=== PATIENT | male | born 1970 | race Caucasian/White ===

== ENCOUNTER 2017-08-03 00:22 | Inpatient (IN) | payer OTHER ==
[~2017-08-03] VITALS: Ht 175.3 cm; Wt 73.9 kg
[~2017-08-03 00:22] MED LIST: FLUO20CA36 PO; VEDO1INJ IV
[2017-08-03] MEDS ORDERED: HYDROmorphone INJ 1 MG/ML SYR IV STA (00:45)
[2017-08-03] MEDS ORDERED: SODIUM CHLORIDE 0.9% 1000ML 1,000 ML IV STA ×2 (00:45)
[2017-08-03] MEDS ORDERED: ONDANSETRON INJ 2 MG/ML 2 ML VIAL IV STA ×2 (00:45→01:43)
[2017-08-03 00:53] LABS: BASO % 0.1 %; BASO ABS # 0.01 K/uL (0-0.2); EOS % 1.6 %; EOS ABS # 0.16 K/uL (0-0.5); HEMATOCRIT 43.8 % (42-52); HEMOGLOBIN 14.8 g/dL (14.0-18.0); IG# 0.03 K/uL (0.00-0.02); LYMPH % 12.5 %; LYMPH ABS # 1.25 K/uL (1.2-3.4); MEAN CELL VOLUME 90.3 fL (80-100); MEAN CORPUSCULAR HEMOGLOBIN 30.5 pg (25-34); MEAN CORPUSCULAR HGB CONC 33.8 g/dl (32-36); MEAN PLATELET VOLUME 9.2 fL (7.4-10.4); MONO % 5.2 %; MONO ABS # 0.52 K/uL (0.11-0.59); NEUT % 80.3 %; NEUT ABS # 8.03 K/uL (1.4-6.5); PLATELET COUNT 294 K/uL (130-400); RED CELL DISTRIBUTION WIDTH CV 13.5 % (11.5-14.5); RED CELL DISTRIBUTION WIDTH SD 44.4 fL (36.4-46.3)
--- NOTE | 2017-08-03 00:57 | EMERGENCY ROOM VISIT NOTE ---
History Report prepared by Tim: James Mason Under the Supervision of: Dr. Maddy Bates D.O. First contact with patient: 00:33 Chief Complaint: ABDOMINAL PAIN Stated Complaint: PAIN RT SIDE OF STOMACH,NAUSEA,CROHNS HISTORY History of Present Illness The patient is a 47 year old male who presents to the Emergency Room with complaints of constant, sharp, abdominal pain beginning earlier today. The patient states this morning his entire abdomen was painful. He reports it subsided this evening, and his pain was focused on the right side of his abdomen. The patient notes he has a history of Crohn's disease, and his flares are typically on the left side, not the right. He states he vomited as well, and this is typical for his flares. The patient reports he had a history of a colon resection three years ago, and he has not had a flare since. He notes he has been experiencing fevers and chills, and lightheadedness throughout the day. 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 He denies blood in his stool, being around sick people, back pain, trouble urinating, a sorethroat, and a cough. Source of History: patient Onset: eaer today Position: abdomen Quality: sharp Timing: constant Associated Symptoms: + fevers, + chills, + vomiting, No sorethroat, No cough , No back pain Note: Associated symptoms: lightheadedness Denies: blood in his stool, trouble urinating Review of Systems See HPI for pertinent positives & negatives. A total of 10 systems reviewed and were otherwise negative. Past Medical & Surgical Medical Problems: (1) Crohns disease (2) GI bleed (3) SBO (small bowel obstruction) Family History Diabetes mellitus Hypertension Social History Smoking Status: Former Smoker Marital Status: Housing Status: lives with family Occupation Status: employed Current/Historical Medications No Active Prescriptions or Reported Meds Allergies Coded Allergies: Morphine (Verified Adverse Reaction, Intermediate, N/V, 08/03/17) Physical Exam Vital Signs Date Time Temp Pulse Resp B/P (MAP) Pulse Ox O2 Delivery O2 Flow Rate FiO2 08/03/17 05:47 111/70 08/03/17 05:41 85 13 96 08/03/17 05:31 92/60 08/03/17 05:11 84 14 96 08/03/17 05:01 115/59 08/03/17 04:41 81 94 08/03/17 04:35 80 08/03/17 04:31 102/70 08/03/17 04:11 86 14 08/03/17 04:06 86 13 08/03/17 04:01 103/69 08/03/17 03:36 89 13 92 08/03/17 03:31 109/69 08/03/17 03:06 95 15 99 08/03/17 03:01 129/73 08/03/17 02:36 91 15 99 08/03/17 02:31 111/73 97 Room Air 08/03/17 02:17 84 13 08/03/17 02:01 118/74 08/03/17 01:47 89 14 98 08/03/17 01:31 118/87 08/03/17 01:17 75 20 100 08/03/17 01:12 76 17 99 Nasal Cannula 2.0 08/03/17 01:04 Nasal Cannula 2.0 08/03/17 01:02 78 81 Room Air 08/03/17 01:01 125/76 08/03/17 00:57 73 16 100 08/03/17 00:52 74 29 99 Room Air 08/03/17 00:46 75 08/03/17 00:45 124/91 08/03/17 00:25 36.5 72 20 128/84 100 Room Air Physical Exam General: Very uncomfortable appearing. HEENT: Head - normocephalic and atraumatic Pupils are equal, round, and reactive to light. Extraocular eye muscles are intact, and sclera are anicteric. Nose - moist nasal mucosa without discharge. Mouth - moist buccal mucosa. Oropharynx is nonerythematous and there is no tonsillar exudate or edema noted. Neck: Supple; no JVD, nuchal rigidity, cervical lymphadenopathy. Heart: Regular rate and rhythm. There is a normal S1 and S2 with no murmurs, clicks, or gallops appreciated. Lungs: Clear to auscultation bilaterally with no wheezes, rales, or rhonchi. Abdomen: Soft, tender to palpation in both lower right and left quadrants, nondistended, with good bowel sounds. There are no palpable pulsatile masses or hepatosplenomegaly. There is no guarding, rigidity, or rebound noted. Extremities: No evidence of cyanosis, clubbing, or edema. There are easily palpable peripheral pulses. Skin: warm and dry with good turgor and no rashes. Medical Decision & Procedures ER Provider Diagnostic Interpretation: Radiology results as stated below per my review and the radiologist's interpretation: CT ABDOMEN & PELVIS With Contrast: Comparison: CT and pelvis 02/06/15. Oral contrast only reaches the proximal jejunum, limiting evaluation of remainder of bowel. Postsurgical changes at ileocecal junction, which appears patent. Multiple dilated loops of small bowel. Short segment of mural thickening and luminal narrowing of small bowel approximately 18cm from ileocecal junction and there is dilation and fecalization of small bowl proximal to this point (image 63, series 2). This likely represents Crohn's-related inflammation or stricture with resulting at lease partial obstruction. More distal small bowel is not collapsed, suggesting against complete obstruction. Consider follow-up examination to evaluate for contrast progression as clinically warranted. Trace free fluid in pelvis. Mildly enlarged mesenteric lymph nodes. No free air. Subsegmental likely atelectatic changes at the visualized lower lungs. Gynecomastia. Radiologist: Bill Kearney MD Study ready at 0328 and initial results transmitted at 0356. Laboratory Results 08/03/17 00:35 Red Blood Count 4.85, Mean Corpuscular Volume 90.3, Mean Corpuscular Hemoglobin 30.5, Mean Corpuscular Hemoglobin Concent 33.8, Mean Platelet Volume 9.2, Neutrophils (%) (Auto) 80.3, Lymphocytes (%) (Auto) 12.5, Monocytes (%) (Auto) 5.2, Eosinophils (%) (Auto) 1.6, Basophils (%) (Auto) 0.1, Neutrophils # (Auto) 8.03, Lymphocytes # (Auto) 1.25, Monocytes # (Auto) 0.52, Eosinophils # (Auto) 0.16, Basophils # (Auto) 0.01 08/03/17 00:35 Test 08/03/17 00:35 08/03/17 01:07 White Blood Count 10.00 K/uL (4.8-10.8) Red Blood Count 4.85 M/uL (4.7-6.1) Hemoglobin 14.8 g/dL (14.0-18.0) Hematocrit 43.8 % (42-52) Mean Corpuscular Volume 90.3 fL (80-100) Mean Corpuscular Hemoglobin 30.5 pg (25-34) Mean Corpuscular Hemoglobin Concent 33.8 g/dl (32-36) Platelet Count 294 K/uL (130-400) Mean Platelet Volume 9.2 fL (7.4-10.4) Neutrophils (%) (Auto) 80.3 % Lymphocytes (%) (Auto) 12.5 % Monocytes (%) (Auto) 5.2 % Eosinophils (%) (Auto) 1.6 % Basophils (%) (Auto) 0.1 % Neutrophils # (Auto) 8.03 K/uL (1.4-6.5) Lymphocytes # (Auto) 1.25 K/uL (1.2-3.4) Monocytes # (Auto) 0.52 K/uL (0.11-0.59) Eosinophils # (Auto) 0.16 K/uL (0-0.5) Basophils # (Auto) 0.01 K/uL (0-0.2) RDW Standard Deviation 44.4 fL (36.4-46.3) RDW Coefficient of Variation 13.5 % (11.5-14.5) Immature Granulocyte % (Auto) 0.3 % Immature Granulocyte # (Auto) 0.03 K/uL (0.00-0.02) Anion Gap 8.0 mmol/L (3-11) Est Creatinine Clear Calc Drug Dose 81.2 ml/min Estimated GFR () 88.6 Estimated GFR (Non- 76.4 BUN/Creatinine Ratio 13.5 (10-20) Calcium Level 9.0 mg/dl (8.5-10.1) Total Bilirubin 0.4 mg/dl (0.2-1) Direct Bilirubin 0.1 mg/dl (0-0.2) Aspartate Amino Transf (AST/SGOT) 33 U/L (15-37) Alanine Aminotransferase (ALT/SGPT) 51 U/L (12-78) Alkaline Phosphatase 94 U/L (45-117) Total Protein 7.9 gm/dl (6.4-8.2) Albumin 3.6 gm/dl (3.4-5.0) Lipase 131 U/L (73-393) Urine Color YELLOW Urine Appearance CLOUDY (CLEAR) Urine pH 8.5 (4.5-7.5) Urine Specific [place] 1.020 (1.000-1.030) Urine Protein NEG (NEG) Urine Glucose (UA) NEG (NEG) Urine Ketones NEG (NEG) Urine Occult Blood NEG (NEG) Urine Nitrite NEG (NEG) Urine Bilirubin NEG (NEG) Urine Urobilinogen NEG (NEG) Urine Leukocyte Esterase NEG (NEG) Urine WBC (Auto) 1-5 /hpf (0-5) Urine RBC (Auto) 0-4 /hpf (0-4) Urine Hyaline Casts (Auto) 5-10 /lpf (0-5) Urine Epithelial Cells (Auto) >30 /lpf (0-5) Urine Bacteria (Auto) NEG (NEG) Urine Renal Epithelial Cells /lpf (0-5) Urine Mucus PRESENT (NONE PRSENT) Laboratory results per my review. Medications Administered Medications (Trade) Dose Ordered Sig/Pasquale Route Start Time Stop Time Status Last Admin Dose Admin Ondansetron HCl (Zofran Inj) 4 mg NOW STAT IV 08/03/17 00:45 08/03/17 00:47 DC 08/03/17 00:54 4 MG Sodium Chloride 1,000 ml @ 999 mls/hr Q1H1M STAT IV 08/03/17 00:45 08/03/17 01:45 DC 08/03/17 00:52 999 MLS/HR Sodium Chloride 1,000 ml @ 250 mls/hr Q4H STAT IV 08/03/17 00:45 08/03/17 04:44 DC 08/03/17 01:29 250 MLS/HR Hydromorphone HCl (Dilaudid Inj) 1 mg NOW STAT IV 08/03/17 00:45 08/03/17 00:47 DC 08/03/17 00:56 1 MG Ondansetron HCl (Zofran Inj) 4 mg NOW STAT IV 08/03/17 01:43 08/03/17 01:44 DC 08/03/17 01:49 4 MG Promethazine HCl 12.5 mg/Sodium Chloride 50.5 ml @ 204 mls/hr NOW STAT IV 08/03/17 03:32 08/03/17 03:46 DC 08/03/17 03:48 204 MLS/HR Procedure 0045: Ordered Hydromorphone HCl 1mg IV, Sodium Chloride 1000 ml @ 250 mls/hr IV. Sodium Chloride 1000 ml @ 999 mls/hr IV. Ondansetron HCl 4mg IV 0143: Ordered Ondansetron HCl 4mg IV 0332: Ordered Promethazine HCl 12.5mg/Sodium Chloride 50.5ml @ 204mls/hr IV ED Course 0035: The patient was evaluated in room B06. A complete history and physical examination were performed. Nursing notes and previous electronic medical records were reviewed. IV lock was established and labs were drawn as above. 0045: Ordered Hydromorphone HCl 1mg IV, Sodium Chloride 1000 ml @ 250 mls/hr IV. Sodium Chloride 1000 ml @ 999 mls/hr IV. Ondansetron HCl 4mg IV 0143: The patient had persistent nausea . I while he was prepping for CT scan. Ordered Ondansetron HCl 4mg IV 0324: I reevaluated the patient. He is still nauseous. 0332: Ordered Promethazine HCl 12.5mg/Sodium Chloride 50.5ml @ 204mls/hr IV. The patient will went for CT scan. 0430: Upon reevaluation, I discussed findings and results with him. He is more comfortable, and his nausea has improved. The patient verbalized agreement of the treatment plan. The patient will be evaluated for further management and care. 0432: I spoke with Dr. Echevarria of the [facility] Hospitalist Service. The patient will be evaluated for further management and care. 0451: I discussed the patient's case with his and updated her of his status. Medical Decision The patient is a 47 year old male who presents to the ED with sharp abdominal pain. Differential diagnosis includes appendicitis, SBO, cystitis, Crohn's exacerbation. Lab results show: WBC of 10, stable H&H, normal renal function and LFTs, glucose of 105. Urine is cloudy with mucus and epithelial cells - no obvious infection. This is a 47-year-old male patient with history of Crohn's disease and previous resection who presents to the emergency department with chills and diffuse abdominal pain. The patient experienced excessive nausea and required multiple antiemetics. CT scan showed evidence of exacerbation of Crohn's with stricture causing a partial small bowel obstruction. I discussed the case with the hospitalist and they will evaluate the patient for further management. Medication Reconcilliation Current Medication List: was personally reviewed by me Blood Pressure Screening Patient's blood pressure: Normal blood pressure Blood pressure disposition: Did not require urgent referral Consults Time Called: [phone] Consulting Physician: Dr. Patel of the [facility] Hospitalist Service Returned Call: [phone] Patel of the [facility] Hospitalist Service. The patient will be evaluated for further management and care. Impression Primary Impression: Partial small bowel obstruction Additional Impression: Exacerbation of Crohn's disease Scribe Attestation The scribe's documentation has been prepared under my direction and personally reviewed by me in its entirety. I confirm that the note above accurately reflects all work, treatment, procedures, and medical decision making performed by me. Departure Information Dispostion Being Evaluated By Hospitalist Prescriptions No Active Prescriptions or Reported Meds Referrals Jeannie Hackett CCharlesR.N.P. (PCP) Patient Instructions [facility] Problem Qualifiers Additional Impression: Exacerbation of Crohn's disease Digestive disease complication type: with intestinal obstruction Qualified Codes: K50.912 - Crohn's disease, unspecified, with intestinal obstruction
[2017-08-03 01:09] LABS: ALBUMIN 3.6 gm/dl (3.4-5.0); CREATININE 1.15 mg/dl (0.60-1.40); POTASSIUM 3.6 mmol/L (3.5-5.1)
[2017-08-03 01:12] LABS: TOTAL PROTEIN 7.9 gm/dl (6.4-8.2)
[2017-08-03] MEDS ORDERED: OPTIRAY 320 IV PRN (01:30)
[2017-08-03] MEDS ORDERED: PROMETHAZINE HCL INJ 12.5 MG in SODIUM CHLORIDE 0.9% 50ML 50 ML IV STA (03:32)
--- NOTE | 2017-08-03 04:47 | History and Physical ---
History & Physical Date & Time of Service: Aug 03, 2017 at 04:46 Chief Complaint: Pain Rt Side Of Stomach,Nausea,Crohns History Primary Care Physician: Jeannie Hackett C.R.N.P. History of Present Illness Source: patient, family 47 yo M with Crohn's disease history of previous small bowel obstructions requiring multiple surgeries of stricturoplasty and bowel resection, with history of GI bleed presents to the ER with abdominal pain in the RLQ starting yesterday evening. He describes with pain as sharp and associated with nausea and one episode of non bloody emesis. He has felt bloated and had 1 episode of loose stool, without blood. He has not noticed any flatus since the abdominal pain commenced. He states his Crohn's has generally been under good control and he has not needed to follow up with gastroenterology in 3 years. He otherwise denies fevers/chills, headaches, CP, palpitations, dyspnea, lower extremity swelling or rashes. He has no issues with voiding. ROS is unremarkable except as noted above. Past Medical/Surgical History Medical Problems: (1) Abdominal pain (2) Abdominal pain (3) Anemia (4) Crohn's colitis (5) Crohns disease (6) Crohns disease (7) Crohns disease (8) Crohns disease (9) Crohns disease (10) Exacerbation of Crohn's disease with intestinal obstruction (11) GI bleed (12) Laceration (13) Need for post exposure prophylaxis for rabies (14) Need for post exposure prophylaxis for rabies (15) Need for post exposure prophylaxis for rabies (16) SBO (small bowel obstruction) (17) SBO (small bowel obstruction) (18) SBO (small bowel obstruction) Family History Diabetes mellitus Hypertension Social History Smoking Status: Former Smoker Smokeless Tobacco Use: No Alcohol Use: none Drug Use: none Marital Status: Occupational Status: employed Immunizations History of Influenza Vaccine: Unknown History of Tetanus Vaccine?: Unknown History of Pneumococcal: Unknown History of Hepatitis B Vaccine: Unknown Allergies Coded Allergies: Morphine (Verified Adverse Reaction, Intermediate, N/V, 08/03/17) Home Medications No Active Prescriptions or Reported Meds Physical Exam Vital Signs Date Time Temp Pulse Resp B/P (MAP) Pulse Ox O2 Delivery O2 Flow Rate FiO2 08/03/17 04:06 86 13 08/03/17 04:01 103/69 08/03/17 03:36 89 13 92 08/03/17 03:31 109/69 08/03/17 03:06 95 15 99 08/03/17 03:01 129/73 08/03/17 02:36 91 15 99 08/03/17 02:31 111/73 97 Room Air 08/03/17 02:17 84 13 08/03/17 02:01 118/74 08/03/17 01:47 89 14 98 08/03/17 01:31 118/87 08/03/17 01:17 75 20 100 08/03/17 01:12 76 17 99 Nasal Cannula 2.0 08/03/17 01:04 Nasal Cannula 2.0 08/03/17 01:02 78 81 Room Air 08/03/17 01:01 125/76 08/03/17 00:57 73 16 100 08/03/17 00:52 74 29 99 Room Air 08/03/17 00:46 75 08/03/17 00:45 124/91 08/03/17 00:25 36.5 72 20 128/84 100 Room Air General Appearance: WD/WN, no apparent distress Head: normocephalic, atraumatic Eyes: normal inspection ENT: hearing grossly normal Neck: supple Respiratory/Chest: normal breath sounds, no respiratory distress, no accessory muscle use Cardiovascular: regular rate, rhythm, normal peripheral pulses Abdomen/GI: normal bowel sounds, soft, + tenderness (RLQ > LLQ) Back: normal inspection, no CVA tenderness Neurologic/Psych: alert, normal mood/affect, oriented x 3 Skin: normal color, warm/dry, no rash Diagnostics Laboratory Results Results Past 24 Hours Test 08/03/17 00:35 08/03/17 01:07 Range/Units White Blood Count 10.00 4.8-10.8 K/uL Red Blood Count 4.85 4.7-6.1 M/uL Hemoglobin 14.8 14.0-18.0 g/dL Hematocrit 43.8 42-52 % Mean Corpuscular Volume 90.3 80-100 fL Mean Corpuscular Hemoglobin 30.5 25-34 pg Mean Corpuscular Hemoglobin Concent 33.8 32-36 g/dl Platelet Count 294 130-400 K/uL Mean Platelet Volume 9.2 7.4-10.4 fL Neutrophils (%) (Auto) 80.3 % Lymphocytes (%) (Auto) 12.5 % Monocytes (%) (Auto) 5.2 % Eosinophils (%) (Auto) 1.6 % Basophils (%) (Auto) 0.1 % Neutrophils # (Auto) 8.03 1.4-6.5 K/uL Lymphocytes # (Auto) 1.25 1.2-3.4 K/uL Monocytes # (Auto) 0.52 0.11-0.59 K/uL Eosinophils # (Auto) 0.16 0-0.5 K/uL Basophils # (Auto) 0.01 0-0.2 K/uL RDW Standard Deviation 44.4 36.4-46.3 fL RDW Coefficient of Variation 13.5 11.5-14.5 % Immature Granulocyte % (Auto) 0.3 % Immature Granulocyte # (Auto) 0.03 0.00-0.02 K/uL Sodium Level 139 136-145 mmol/L Potassium Level 3.6 3.5-5.1 mmol/L Chloride Level 102 98-107 mmol/L Carbon Dioxide Level 29 21-32 mmol/L Anion Gap 8.0 3-11 mmol/L Blood Urea Nitrogen 16 7-18 mg/dl Creatinine 1.15 0.60-1.40 mg/dl Est Creatinine Clear Calc Drug Dose 81.2 ml/min Estimated GFR () 88.6 Estimated GFR (Non- 76.4 BUN/Creatinine Ratio 13.5 10-20 Random Glucose 105 70-99 mg/dl Calcium Level 9.0 8.5-10.1 mg/dl Total Bilirubin 0.4 0.2-1 mg/dl Direct Bilirubin 0.1 0-0.2 mg/dl Aspartate Amino Transf (AST/SGOT) 33 15-37 U/L Alanine Aminotransferase (ALT/SGPT) 51 12-78 U/L Alkaline Phosphatase 94 45-117 U/L Total Protein 7.9 6.4-8.2 gm/dl Albumin 3.6 3.4-5.0 gm/dl Urine Color YELLOW Urine Appearance CLOUDY CLEAR Urine pH 8.5 4.5-7.5 Urine Specific [place] 1.020 1.000-1.030 Urine Protein NEG NEG Urine Glucose (UA) NEG NEG Urine Ketones NEG NEG Urine Occult Blood NEG NEG Urine Nitrite NEG NEG Urine Bilirubin NEG NEG Urine Urobilinogen NEG NEG Urine Leukocyte Esterase NEG NEG Urine WBC (Auto) 1-5 0-5 /hpf Urine RBC (Auto) 0-4 0-4 /hpf Urine Hyaline Casts (Auto) 5-10 0-5 /lpf Urine Epithelial Cells (Auto) >30 0-5 /lpf Urine Bacteria (Auto) NEG NEG Urine Renal Epithelial Cells 0-5 /lpf Urine Mucus PRESENT NONE PRSENT Impression Assessment and Plan 47 yo M with Crohn's disease history of previous small bowel obstructions requiring multiple surgeries of stricturoplasty and bowel resection, with history of GI bleed presents to the ER with abdominal pain in the RLQ Abdominal pain - Stat red report states partially obstructed bowel secondary to strictures. Await final report - NPO - IVF with NSS @ 100cc/hr - IV ondansetron and promethazine PRN nausea - Pain management: Tylenol and morphine PRN - GI consulted Crohn's disease - Patient does not have any home meds VTE ppx - SCDs FULL CODE Attending addendum: I have physically seen this patient, have supervised the medical residents activities, and agree with the H&P unless as otherwise noted. Assessment and Plan: Partial small bowel obstruction/Crohn's exacerbation/history of bowel resection , now with strictures-- N.p.o. Normal saline at 100 ML's per hour. Zofran and Phenergan IV every 6 hours as needed for nausea. Pantoprazole 40 mg IV daily. Morphine sulfate 2 mg IV every 2 hours as needed severe pain. Consult gastroenterology, not on any long-term management and has been doing well since surgery 3 years previously Advanced Directives Existing Advance Directive: No Existing Living Will: No Existing Power of Lump Receiver: No Resuscitation Status Full code VTE Prophylaxis Will order VTE Prophylaxis: Yes Social Service Consult None Apply Resident Tracking Resident Involvement: Resident Care Provided Care Provided: Adult Hospital Medicine
[2017-08-03] MEDS ORDERED: MoRPHine SULFATE 4 MG/ML 1 ML CARP\\VIAL IV PRN (06:00)
[2017-08-03] MEDS ORDERED: PROMETHAZINE HCL INJ 12.5 MG in SODIUM CHLORIDE 0.9% 50ML 50 ML IV PRN (06:00)
[2017-08-03] MEDS ORDERED: POLYETHYLENE (MIRALAX) 17 GM PACK PO PRN (06:00)
[2017-08-03] MEDS ORDERED: ONDANSETRON INJ 2 MG/ML 2 ML VIAL IV PRN (06:00)
[2017-08-03] MEDS ORDERED: MAGNESIUM HYDROXIDE SUSP 30 ML UDC PO PRN (06:00)
[2017-08-03] MEDS ORDERED: ACETAMINOPHEN 325 MG TAB PO PRN (06:00)
[2017-08-03] MEDS ORDERED: ALUMINUM/MAGNESIUM/SIMETH (MAALOX MAX) 30 ML UDC PO PRN (06:00)
[2017-08-03] MEDS ORDERED: IV FLUIDS COMPLETED PRN (06:15)
[2017-08-03 07:30] VITALS: BP 100/69; PULSE 88; TEMP 36.8; O2SAT 96; Ht 175.3 cm; Wt 73.9 kg
--- NOTE | 2017-08-03 07:37 | DIAGNOSTIC IMAGING REPORT ---
ABD/PELVIS IV AND ORAL CONT CLINICAL HISTORY: 47 years-old Male presenting with eval for chron's exacerb. TECHNIQUE: Multidetector CT of the abdomen and pelvis was performed after the administration of oral and intravenous contrast. IV contrast: 93 mL of Optiray 320. A dose lowering technique was used consistent with the principles of ALARA (as low as reasonably achievable). COMPARISON: 02/06/2015. CT DOSE (mGy.cm): The estimated cumulative dose is 336.46 mGy.cm. 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 Lung bases: Minimal basilar opacities, likely atelectasis. Normal heart size. Coronary artery calcification. No pericardial or pleural effusion. Liver: Congenital hypoplasia of the medial segments of the left hepatic lobe. Possible hepatic steatosis. No focal lesion. Patent hepatic vasculature. Biliary: No intrahepatic or extrahepatic biliary ductal dilatation. Normal gallbladder. Pancreas: Normal. Spleen: Normal. Adrenal glands: Normal. Kidneys and ureters: Normal. No hydronephrosis. Bladder: Normal. Pelvic organs: Prostate and seminal vesicles normal. Bowel: Fluid noted in the colon, suggesting a diarrheal state. Mild wall thickening of the ascending colon with trace pericolonic inflammatory change. Wall thickening of the ascending colon. Postsurgical changes of ileocecectomy with a patent anastomosis in the right mid abdomen. Mildly dilated distal small bowel without evidence of obstruction. More proximal small bowel is also abnormally dilated. Tortuous descending duodenum. Feces noted in small bowel of the left mid abdomen (series 3 image 285). A focal transition point is identified in the mid abdomen (series 3 image 309). No evidence of a mass lesion at this site or an anastomosis. This likely represents an adhesion. A surgical clip or suture margin is noted immediately superior lateral to this region (series 3 image 282). Peritoneal cavity: No free fluid or intraperitoneal gas. No pneumatosis. Lymph nodes: No enlarged lymph nodes in the abdomen or pelvis. Vasculature: Aorta and IVC patent and normal in caliber. Abdominal wall: Bilateral gynecomastia. Musculoskeletal: Normal. IMPRESSION: 1. Findings consistent with small bowel obstruction likely secondary to an adhesion adjacent to a surgical clip or suture margin in the mid abdomen as described above. The primary differential consideration is a fibrostenotic stricture in this region. 2. Postsurgical changes of ileocecectomy with a patent right mid abdomen anastomosis at the neoterminal ileum. 3. Wall thickening of the ascending and to a lesser extent the descending colon suggests colitis. The presence of pericolonic inflammatory change along the descending colon favors acute inflammation. No evidence of penetrating disease. 4. Possible hepatic steatosis. Electronically signed by: Brijesh Schneider M.D. 08/03/2017 7:35 AM Dictated Date/Time: 08/03/2017 6:52 AM
[2017-08-03] MEDS: SODIUM CHLORIDE 0.9% 1000ML 1,000 ML IV SCH ×2 (07:43→17:37)
--- NOTE | 2017-08-03 12:55 | GASTROINTESTINAL CONSULTATION ---
DATE OF CONSULTATION: 08/03/2017 REASON FOR EVALUATION: Bowel obstruction. HISTORY OF PRESENT ILLNESS: The patient is a 47-year-old with previous history of Crohn's disease involving the small bowel. He has had to have ileocecal resections in the past and multiple small bowel stricturoplasties. Since his last surgery about 3 years ago, the patient has not taken any of his medication for Crohn's disease and has felt well until yesterday when he started to develop abdominal pain, abdominal distention, decreased stool output and nausea and vomiting. He presented to the hospital where a CT scan showed bowel obstruction in the mid abdomen, possibly from an adhesion. The patient has been admitted on bowel rest and GI consultation has been obtained. PAST MEDICAL HISTORY: Remarkable for Crohn's ileocolitis, status post resections. MEDICATIONS: None. ALLERGIES: MORPHINE. FAMILY HISTORY: Positive for diabetes and hypertension. SOCIAL HISTORY: The patient is , smoked in the past. REVIEW OF SYSTEMS: Negative for 12 systems. PHYSICAL EXAMINATION: GENERAL: The patient appears awake, alert, in no acute distress. VITAL SIGNS: Blood pressure is 103/69, pulse 86, O2 saturations 92%. The patient has a tattoo of a palm tree in the left forearm. LUNGS: Clear. HEART: Showed normal S1 and S2 with regular rate and rhythm without murmurs, rubs, or gallops. ABDOMEN: Soft. There is a midline scar. There is no tenderness at this time and no significant distention. LABORATORY DATA: Shows a normal CBC, normal liver profile, BUN and creatinine are also normal. IMPRESSION: The patient has acute onset abdominal pain with what appears to be a bowel obstruction from adhesions. Hopefully, this will resolve without surgical intervention. If his symptoms get worse, we can place a nasogastric tube, but I do not think it is necessary at this time. I have also planned to put him empirically on IV Solu-Medrol 30 mg twice a day in case it is Crohn's disease or likely it is not and the Solu-Medrol may help reduce some swelling. Regardless, if he does not improve and fails to respond to NG decompression, then surgical intervention may be necessary, but hopefully will not be. We will continue to follow the patient during his hospital stay.
--- NOTE | 2017-08-03 13:26 | Progress Note ---
Progress Note Date of Service Aug 03, 2017. Progress Note Patient admitted at 6:00 this morning. He was seen and examined by me and I reviewed the chart. At this time he has absolutely no pain at all. He has not received anything for pain or nausea since about 1:00 this morning-12 hours ago. He is passing gas, denies nausea or vomiting. She said prior to this, he has never felt better in his life and has had no problems with his Crohn since his last bowel surgery several years ago. He has had issues with adhesions in the past. Denies any blood in the stool, weight loss, fevers, chest pain, shortness of breath. He is otherwise very healthy and takes no medications or supplements. He does not smoke, drink alcohol, or use drugs. 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 Vitals reviewed Gen: AAOx3, NAD HEENT: anicteric sclerae, EOMI CV: RRR no mgr nl S1S2 Pulm: CTAB no wcr Abd: +BS soft NT ND no masses or hernias, surgical midline scar with mild hypertrophy Ext: no edema, 2+ DP pulses Skin: no rashes, warm/dry Neuro: full strength throughout Patient is a 47-year-old male with a history of Crohn's with multiple small bowel resections in the past, with his disease being in remission for the last several years. He is here with right-sided abdominal pain and found to have a small bowel obstruction on CT scan. He does have some evidence of colitis somewhat in the a sending and more so in the descending colon. Again, he is completely symptom free at this time. GI saw him and started him on IV steroids just in case he is having a Crohn's flare. No indication for surgical intervention at this time. He does not have an NG tube in place. I feel it is okay for him to try some clear liquids now and he will back off if this is making his symptoms return. Appreciate GI consultation and he will need GI follow-up after discharge
[2017-08-03] MEDS: METHYLPREDNISOLONE IV 30 MG in SYRINGE 0 ML IV SCH (13:43)
[2017-08-03 15:15] VITALS: BP 116/72; PULSE 66; TEMP 36.7; O2SAT 95
[2017-08-03 23:01] VITALS: BP 103/67; PULSE 62; TEMP 36.4; O2SAT 97
[2017-08-04] MEDS: METHYLPREDNISOLONE IV 30 MG in SYRINGE 0 ML IV SCH ×2 (02:14→13:59)
[2017-08-04] MEDS: SODIUM CHLORIDE 0.9% 1000ML 1,000 ML IV SCH ×3 (02:14→22:02)
[2017-08-04 07:53] VITALS: BP 120/70; PULSE 60; TEMP 36.3; O2SAT 95
[2017-08-04 08:28] VITALS: O2SAT 95
[2017-08-04 09:04] LABS: HEMATOCRIT 41.3 % (42-52); HEMOGLOBIN 13.7 g/dL (14.0-18.0); IG# 0.02 K/uL (0.00-0.02); LYMPH % 7.4 %; LYMPH ABS # 0.64 K/uL (1.2-3.4); MEAN CELL VOLUME 90.8 fL (80-100); MEAN CORPUSCULAR HEMOGLOBIN 30.1 pg (25-34); MEAN PLATELET VOLUME 9.3 fL (7.4-10.4); MONO % 1.2 %; NEUT % 91.2 %; NEUT ABS # 7.85 K/uL (1.4-6.5); PLATELET COUNT 252 K/uL (130-400); RED CELL DISTRIBUTION WIDTH SD 45.9 fL (36.4-46.3); WHITE BLOOD COUNT 8.61 K/uL (4.8-10.8)
[2017-08-04 09:05] LABS: MEAN CORPUSCULAR HGB CONC 33.2 g/dl (32-36)
[2017-08-04 09:23] LABS: CALCIUM 8.2 mg/dl (8.5-10.1); CREATININE 0.95 mg/dl (0.60-1.40); POTASSIUM 3.8 mmol/L (3.5-5.1)
[2017-08-04 09:31] LABS: TOTAL PROTEIN 6.9 gm/dl (6.4-8.2)
--- NOTE | 2017-08-04 09:40 | Hospitalist Progress Note ---
Hospitalist Progress Note Date of Service Aug 04, 2017. (Nicci Prabhakar PA-C) Subjective Pt evaluation today including: conversation w/ patient, conversation w/ family , physical exam, chart review, lab review, review of studies, conversation w/ revenue cycle consultant Pain: None PO Intake: Clear liquids Voiding: no voiding problems The patient was seen and examined this morning. Pt reports doing very well. He has no abdominal pain, nausea, bloating or distension. He is passing flatus but has not had a BM yet. His last meal was on Monday. Pt denies any fever, chills or sweats. Constitutional: No fever, No chills, No sweats, No fatigue Eyes: No redness ENT: No nasal symptoms, No sore throat Respiratory: No cough, No sputum, No shortness of breath, No dyspnea at rest Cardiovascular: No chest pain, No edema, No palpitations Abdomen: No pain, No nausea, No vomiting, No diarrhea, No constipation, No GI bleeding Musculoskeletal: No joint pain, No muscle pain, No swelling Neurologic: No weakness, No numbness/tingling (Nicci Prabhakar PA-C ) Objective Vital Signs Date Time Temp Pulse Resp B/P (MAP) Pulse Ox O2 Delivery O2 Flow Rate FiO2 08/04/17 08:28 95 Room Air 08/04/17 07:53 36.3 60 16 120/70 (87) 95 Room Air 08/04/17 07:35 Room Air 08/03/17 23:25 Room Air 08/03/17 23:01 36.4 62 16 103/67 (79) 97 Room Air 08/03/17 15:50 Room Air 08/03/17 15:15 36.7 66 16 116/72 (87) 95 Room Air (Nicci Prabhakar PA-C) Physical Exam General Appearance: WD/WN, no apparent distress, + pertinent finding ( physically fit appearing male) Eyes: PERRL, EOMI ENT: hearing grossly normal, pharynx normal Neck: supple, no JVD Respiratory/Chest: lungs clear, no respiratory distress, no accessory muscle use Cardiovascular: regular rate, rhythm, no murmur Abdomen: normal bowel sounds, non tender, soft, no organomegaly Extremities: non-tender, no pedal edema, no calf tenderness Neurologic/Psychiatric: alert, normal mood/affect, oriented x 3 Skin: normal color, warm/dry, + pertinent finding (multiple tattoos) (Nicci Prabhakar PA-C) Laboratory Results Last 24 Hours Test 08/04/17 08:54 08/04/17 08:55 White Blood Count 8.61 K/uL Red Blood Count 4.55 M/uL Hemoglobin 13.7 g/dL Hematocrit 41.3 % Mean Corpuscular Volume 90.8 fL Mean Corpuscular Hemoglobin 30.1 pg Mean Corpuscular Hemoglobin Concent 33.2 g/dl Platelet Count 252 K/uL Mean Platelet Volume 9.3 fL Neutrophils (%) (Auto) 91.2 % Lymphocytes (%) (Auto) 7.4 % Monocytes (%) (Auto) 1.2 % Eosinophils (%) (Auto) 0.0 % Basophils (%) (Auto) 0.0 % Neutrophils # (Auto) 7.85 K/uL Lymphocytes # (Auto) 0.64 K/uL Monocytes # (Auto) 0.10 K/uL Eosinophils # (Auto) 0.00 K/uL Basophils # (Auto) 0.00 K/uL RDW Standard Deviation 45.9 fL RDW Coefficient of Variation 14.0 % Immature Granulocyte % (Auto) 0.2 % Immature Granulocyte # (Auto) 0.02 K/uL Sodium Level 140 mmol/L Potassium Level 3.8 mmol/L Chloride Level 107 mmol/L Carbon Dioxide Level 26 mmol/L Anion Gap 7.0 mmol/L Blood Urea Nitrogen 9 mg/dl Creatinine 0.95 mg/dl Est Creatinine Clear Calc Drug Dose 98.2 ml/min Estimated GFR () 111.6 Estimated GFR (Non- 96.3 BUN/Creatinine Ratio 9.2 Random Glucose 156 mg/dl Calcium Level 8.2 mg/dl Total Bilirubin 0.4 mg/dl Aspartate Amino Transf (AST/SGOT) 25 U/L Alanine Aminotransferase (ALT/SGPT) 42 U/L Alkaline Phosphatase 93 U/L Total Protein 6.9 gm/dl Albumin 3.0 gm/dl Globulin 3.9 gm/dl Albumin/Globulin Ratio 0.8 Lactic Acid Level 1.6 mmol/L (Nicci Prabhakar PA-C) Assessment and Plan 47 yo M with Crohn's disease history of previous small bowel obstructions requiring multiple surgeries of stricturoplasty and bowel resection, with history of GI bleed presents to the ER with abdominal pain in the RLQ Abdominal pain secondary to SBO Hx of multiple small bowel resections in the setting on Crohns disease Surgeries in 1997, 2003, 2011 at [facility] and finally Dec 2014 in [place]. All small bowel resections. High risk for adhesions. - IVF with NSS @ 100cc/hr - IV ondansetron and promethazine PRN nausea - not requiring - Pain management: Tylenol and morphine PRN - not requiring these today - Continue on solumedrol 30 mg IV Q12H per GI - GI consulted - appreciate recs by Dr. Miguel - likely able to advance diet today but will ask GI to assess pt first. - Pt is not on any immunosuppressants/biological agents for Crohns disease VTE ppx - SCDs, encourage ambulation FULL CODE Disposition: From home, lives with , no CM needs anticipated. (Nicci Prabhakar, PARicardo) Attending Note & Attestation - Pt seen/examined, chart reviewed, care plan d/w BETSY Prabhakar. I agree w/ the flor components of her progress note. Pt w/o abd pain, nausea, emesis. +flatus. VSS gen - nad heart - RRR lungs - CTA b/l mouth - MMM, no ulcers abd - soft, NT, ND, BS+, no HSM ext - no edema A/P: SBO - likely due to adhesions; less likely from active Crohn's disease. Improved. Advance diet. Hopefully home tomorrow. Ambulate. Sarah MCCRACKEN MD (Roby Mccracken MD)
[2017-08-04 11:54] VITALS: BP 118/80; PULSE 64; TEMP 36.7; O2SAT 96
--- NOTE | 2017-08-04 14:56 | Gastroenterology Progress Note ---
Progress Note Date of Service: Aug 04, 2017 Subjective Pt evaluation today including: conversation w/ patient, conversation w/ family (), physical exam, chart review, lab review, review of studies, review of inpatient medication list CC f/u SBO HPI in room for H and P. Pt tolerating clear liquid diet. NO abd pain. Passing gas. Review of Systems Respiratory: No shortness of breath Cardiac: No chest pain Medications Current Inpatient Medications Medications (Trade) Dose Ordered Sig/Pasquale Route Start Time Stop Time Status Last Admin Dose Admin Ioversol (Optiray 320) 100 ml UD PRN IV 08/03/17 01:30 08/07/17 01:29 Acetaminophen (Tylenol Tab) 650 mg Q4H PRN PO 08/03/17 06:00 09/02/17 05:59 Al Hydrox/Mg Hydrox/Simethicone (Maalox Max Susp) 15 ml Q4H PRN PO 08/03/17 06:00 09/02/17 05:59 Magnesium Hydroxide (Milk Of Magnesia Susp) 30 ml Q6H PRN PO 08/03/17 06:00 09/02/17 05:59 Polyethylene (Miralax Powder Packet) 17 gm DAILY PRN PO 08/03/17 06:00 09/02/17 05:59 Ondansetron HCl (Zofran Inj) 4 mg Q6H PRN IV 08/03/17 06:00 09/02/17 05:59 Sodium Chloride 1,000 ml @ 100 mls/hr Q10H IV 08/03/17 06:00 09/02/17 05:59 08/04/17 12:06 100 MLS/HR Morphine Sulfate (MoRPHine SULFATE INJ) 4 mg Q4H PRN IV 08/03/17 06:00 08/17/17 05:59 Promethazine HCl 12.5 mg/Sodium Chloride 50.5 ml @ 204 mls/hr Q6H PRN IV 08/03/17 06:00 09/02/17 05:59 08/03/17 06:06 204 MLS/HR Miscellaneous (Iv Fluids Completed) 1 ea PRN PRN N/A 08/03/17 06:15 08/03/18 06:14 Methylprednisolone Sodium Succinate 30 mg/Syringe 0.48 ml @ 1.5 mls/min Q12H IV 08/03/17 14:00 09/02/17 13:59 08/04/17 13:59 1.5 MLS/MIN Objective Vital Signs Date Time Temp Pulse Resp B/P (MAP) Pulse Ox O2 Delivery O2 Flow Rate FiO2 08/04/17 11:54 36.7 64 16 118/80 (93) 96 Room Air 08/04/17 08:28 95 Room Air 08/04/17 07:53 36.3 60 16 120/70 (87) 95 Room Air 08/04/17 07:35 Room Air 08/03/17 23:25 Room Air 08/03/17 23:01 36.4 62 16 103/67 (79) 97 Room Air 08/03/17 15:50 Room Air 08/03/17 15:15 36.7 66 16 116/72 (87) 95 Room Air Physical Exam General Appearance: WD/WN, no apparent distress Respiratory/Chest: lungs clear, no respiratory distress Cardiovascular: regular rate, rhythm, no edema Abdomen: normal bowel sounds, non tender, soft, no organomegaly, no pulsatile mass Neurologic/Psych: alert, normal mood/affect, oriented x 3 Skin: normal color Laboratory Results Last 24 Hours Test 08/04/17 08:54 08/04/17 08:55 White Blood Count 8.61 K/uL Red Blood Count 4.55 M/uL Hemoglobin 13.7 g/dL Hematocrit 41.3 % Mean Corpuscular Volume 90.8 fL Mean Corpuscular Hemoglobin 30.1 pg Mean Corpuscular Hemoglobin Concent 33.2 g/dl Platelet Count 252 K/uL Mean Platelet Volume 9.3 fL Neutrophils (%) (Auto) 91.2 % Lymphocytes (%) (Auto) 7.4 % Monocytes (%) (Auto) 1.2 % Eosinophils (%) (Auto) 0.0 % Basophils (%) (Auto) 0.0 % Neutrophils # (Auto) 7.85 K/uL Lymphocytes # (Auto) 0.64 K/uL Monocytes # (Auto) 0.10 K/uL Eosinophils # (Auto) 0.00 K/uL Basophils # (Auto) 0.00 K/uL RDW Standard Deviation 45.9 fL RDW Coefficient of Variation 14.0 % Immature Granulocyte % (Auto) 0.2 % Immature Granulocyte # (Auto) 0.02 K/uL Sodium Level 140 mmol/L Potassium Level 3.8 mmol/L Chloride Level 107 mmol/L Carbon Dioxide Level 26 mmol/L Anion Gap 7.0 mmol/L Blood Urea Nitrogen 9 mg/dl Creatinine 0.95 mg/dl Est Creatinine Clear Calc Drug Dose 98.2 ml/min Estimated GFR () 111.6 Estimated GFR (Non- 96.3 BUN/Creatinine Ratio 9.2 Random Glucose 156 mg/dl Calcium Level 8.2 mg/dl Total Bilirubin 0.4 mg/dl Aspartate Amino Transf (AST/SGOT) 25 U/L Alanine Aminotransferase (ALT/SGPT) 42 U/L Alkaline Phosphatase 93 U/L Total Protein 6.9 gm/dl Albumin 3.0 gm/dl Globulin 3.9 gm/dl Albumin/Globulin Ratio 0.8 Lactic Acid Level 1.6 mmol/L Assessment and Plan abd pain--from SBO resolved SBO clinically resolved, advance to low fiber diet and should be on that for 2 weeks as outpt. If tolerated supper and breakfast can be DCed tomorrow. Crohns--Cut back Prednisone to 20 mg daily for one more week then DC. Since patient did not have active crohns flare symptoms prior to admit suspect SBO from adhesion. Discussed with patient and regarding important for him to f/u china Keen as outpt to consider resuming biologic to prevent/prolong future bowel surgery. He had 4 bowel surgeries and high risk for needing more without biologics.
[2017-08-04 15:15] VITALS: BP 135/81; PULSE 67; TEMP 36.7; O2SAT 96
[2017-08-04 23:41] VITALS: BP 132/79; PULSE 64; TEMP 36.7; O2SAT 95
[2017-08-05 07:17] VITALS: BP 124/78; PULSE 58; TEMP 36.8; O2SAT 97
[2017-08-05] MEDS: SODIUM CHLORIDE 0.9% 1000ML 1,000 ML IV SCH (07:23)
[2017-08-05 09:09] LABS: BASO % 0.1 %; BASO ABS # 0.01 K/uL (0-0.2); EOS % 0.9 %; EOS ABS # 0.08 K/uL (0-0.5); HEMATOCRIT 39.6 % (42-52); IG# 0.02 K/uL (0.00-0.02); LYMPH ABS # 1.98 K/uL (1.2-3.4); MEAN CELL VOLUME 91.2 fL (80-100); MEAN CORPUSCULAR HGB CONC 32.8 g/dl (32-36); MEAN PLATELET VOLUME 9.3 fL (7.4-10.4); MONO % 7.8 %; NEUT ABS # 6.22 K/uL (1.4-6.5); PLATELET COUNT 245 K/uL (130-400); RED CELL DISTRIBUTION WIDTH SD 46.5 fL (36.4-46.3); WHITE BLOOD COUNT 9.01 K/uL (4.8-10.8)
[2017-08-05 09:43] LABS: CALCIUM 8.4 mg/dl (8.5-10.1); CREATININE 0.96 mg/dl (0.60-1.40); POTASSIUM 3.6 mmol/L (3.5-5.1)
[2017-08-05 09:45] LABS: TOTAL PROTEIN 6.7 gm/dl (6.4-8.2)
[2017-08-05] MEDS ORDERED: PRD20 PO (09:48)
--- NOTE | 2017-08-05 09:52 | Discharge Instructions ---
Discharge Instructions Date of Service Aug 05, 2017. Admission Reason for Admission: Partial Small Bowel Obstruction Discharge Discharge Diagnosis / Problem: small bowel obstruction - resolving; likely due to adhesions Discharge Goals Goal(s): Learn about illness, Diagnostic testing, Therapeutic intervention Activity Recommendations Activity Limitations: resume your previous activity (take it easy for the next 2 days, then can resume normal activities) . Instructions / Follow-Up Instructions / Follow-Up From Dr. Mccracken - 1. Please take prednisone 20mg once daily for 7 days starting tomorrow, Monday08/06/17. 2. Please follow a low fiber diet for the next 7-10 days. Avoid excessive amounts of high fiber cereals, beans, fruits, veggies, etc. 3. Please follow-up with Dr. Curtis Keen, [facility], within the next 1-2 weeks to discuss resuming treatment for your Crohn's disease. 4. Return to [facility] if - * you have recurrent vomiting, abdominal pain, bloating/distension * you are not passing gas or stool from your rectum * you develop bright red blood in your stool, etc * fever over 100.5 degrees * any other concerns Current Hospital Diet Patient's current hospital diet: Low Fiber Diet Discharge Diet Recommended Diet: Low Fiber Diet (for next 7-10 days) Procedures Procedures Performed: CAT scan of abd/pelvis showing small bowel obstruction and possible inflammation of a portion of the colon Pending Studies Studies pending at discharge: no Medical Emergencies . Who to Call and When: Medical Emergencies: If at any time you feel your situation is an emergency, please call 911 immediately. . Non-Emergent Contact Non-Emergency issues call your: Primary Care Provider, Fruit Farmworker Call Non-Emergent contact if: temperature is above 100.5, your pain is not controlled, your pain is worsening, your pain is unusual for you, your pain is concerning you, you have any medication questions . . "Provider Documentation" section prepared by Roby Mccracken. .
[2017-08-05 10:02] VITALS: BP 124/78; PULSE 58; TEMP 36.8; O2SAT 97
--- NOTE | 2017-08-06 00:26 | Discharge Summary ---
Discharge Summary Date of Service Aug 06, 2017. Discharge Summary Admission Date: Aug 04, 2017 at 15:48 Discharge Date: Aug 05, 2017 Discharge Disposition: Home Principal Diagnosis: SBO - resolved Problems/Secondary Diagnoses: Crohn's disease Immunizations: Have You Had Influenza Vaccine: Unknown History of Tetanus Vaccine?: Unknown History of Pneumococcal: Unknown History of Hepatitis B Vaccine: Unknown Procedures: CT abd/pelvis- IMPRESSION: 1. Findings consistent with small bowel obstruction likely secondary to an adhesion adjacent to a surgical clip or suture margin in the mid abdomen as described above. The primary differential consideration is a fibrostenotic stricture in this region. 2. Postsurgical changes of ileocecectomy with a patent right mid abdomen anastomosis at the neoterminal ileum. 3. Wall thickening of the ascending and to a lesser extent the descending colon suggests colitis. The presence of pericolonic inflammatory change along the descending colon favors acute inflammation. No evidence of penetrating disease. 4. Possible hepatic steatosis. Consultations: gastroenterology - Curtis Keen MD Medication Reconciliation New Medications: Prednisone (Prednisone) 20 Mg Tab 20 MG PO DAILY for 7 Days, #7 TAB 0 Refills Referrals At Discharge Follow up Referrals: Investment Strategist Referral - Within 1-2 Weeks with Curtis Keen M.D. Discharge Exam Physical Exam: General Appearance: WD/WN, no apparent distress ENT: pharynx normal Neck: no JVD Respiratory/Chest: lungs clear, no respiratory distress, no accessory muscle use Cardiovascular: regular rate, rhythm, no gallop, no murmur, normal peripheral pulses Abdomen / GI: normal bowel sounds, non tender, soft, no organomegaly Extremities: no pedal edema Neurologic/Psychiatric: alert, oriented x 3 Skin: no rash Hospital Course HISTORY OF PRESENT ILLNESS: 47yo male with history of Crohn's disease, previous small bowel obstructions requiring multiple surgeries including stricturoplasty and bowel resection, as well as previous GI bleed who presented to the ER with abdominal pain in the RLQ starting yesterday evening. He described the pain as sharp and associated with nausea and one episode of non bloody emesis. He had felt bloated and had 1 episode of loose stool without blood. He had not noticed any flatus since the abdominal pain commenced. He stated his Crohn's had generally been under good control and he had not needed to follow up with gastroenterology in 3 years. He otherwise denied fevers/chills, headaches, chest pain, palpitations, dyspnea, lower extremity swelling or rashes. CT abd/pelvis in the [facility] ER demonstrated evidence of SBO. HOSPITAL COURSE: The patient's SBO was thought to be due to adhesions given the acuity of the event. Active Crohn's disease was felt to be less likely as he had not had Crohn's symptoms in several years. He was treated for his SBO with conservative measures including bowel rest, IV fluids, and pain medication. His GI symptoms quickly improved and he was ultimately resumed on a diet. This was advanced without difficulty. Prior to discharge he had plenty of flatus and 2 stools. In the event the SBO was due to active Crohn's disease he did receive steroids while hospitalized and will complete a 7-day course of oral prednisone 20mg daily. He was asked to follow-up with Dr. Curtis Keen, [facility], within 1-2 weeks of discharge to discuss whether to restart maintenance therapy for his Crohn's. At discharge he will follow a low fiber diet for about 7-10 days. Vitals and labs remained stable during his short stay. Total Time Spent: Less than 30 minutes This includes examination of the patient, discharge planning, medication reconciliation, and communication with other providers. Discharge Instructions Please refer to the electronic Patient Visit Report (Discharge Instructions) for additional information. Follow-Up 1. see BRANDEN Sanz, within [address] Curtis Keen, gastroenterology, within 1-2 weeks Additional Copies To Curtis Keen M.D.; Jeannie Hackett C.R.N.P.
== END 2017-08-05 10:26 | disposition home or self-care (01) | DRG 389 ==
LOC: C.EDB 00:23 → C.MSW 05:53 → ENRESERV 06:19 → OBSVTOIN 08-04 15:48
PROVIDERS: ADMIT Hospitalist; ATTEND Internal Medicine
DX: K56.51 Intestinal adhesions [bands], with partial obstruction (principal); K50.912 Crohn's disease, unspecified, with intestinal obstruction; Z87.891 Personal history of nicotine dependence; Z88.5 Allergy status to narcotic agent; Z83.3 Family history of diabetes mellitus; Z82.49 Family history of ischemic heart disease and other diseases of the circulatory system

== ENCOUNTER 2019-06-16 19:55 | Inpatient (IN) ==
--- OUTSIDE RECORDS SUMMARY | 2019-06-16 19:58 | External Medical Summary | Continuity of Care Document ---
:1970 Author Name Elyse Barrera, Provider Address Unavailable Unavailable , Care Team Providers Name Role Phone Asiya Barrera, Sonido Sheth Unavailable [email or web address] Shawn [email or web address] Unavailable Unavailable Problems Active medical history not documented Allergies and Adverse Reactions No Known Drug Allergies (Allergy) Medications hydrOXYzine HCl - 50 MG Oral Tablet; TAKE 1 TABLET AT BEDTIM E. Refills: 0 Ferrous Sulfate 325 (65 Fe) MG Oral Tablet; TAKE 1 TABLET 3 TIMES DAILY. Refills: 0 Cholestyramine 4 GM Oral Packet; MIX THE CONTENTS OF 1 POWDER PACKET WITH 2 TO 6 OZ OF NONCARBONATED BEVERAGE AND DRINK 3 TIMES DAILY. Refills: 0 Wellbutrin XL 150 MG Oral Tablet Extended Release 24 H our; TAKE 1 TABLET DAILY. Refills: 0 Percocet 5-325 MG Oral Tablet; TAKE 1 TO 2 TABLETS EVERY 4 TO 6 HOURS NEEDED FOR PAIN. Refills: 0 Multivitamins TABS; TAKE 1 TABLET DAILY. Refills: 0 Ativan 0.5 MG Oral Tablet; TAKE TABLET 1-2 TABLETS AT BEDTI ME NEEDED Refills: 0 Procedures Procedures not documented Immunizations Immunizations not documented Social History - Smoking Status Former smoker Plan of Treatment Planned Observations Planned Goals not documented Results No Known Results Results not documented Encounters Appointment; Sonido Braedn M.D. 26-Jan-2016 14:15 Encounter Diagnosis: Problem not documented
--- OUTSIDE RECORDS SUMMARY | 2019-06-16 19:58 | External Medical Summary | Continuity of Care Document ---
:1970 Author Name Elyse Barrera, Provider Address Unavailable Unavailable , Care Team Providers Name Role Phone Asiya Barrera, Sonido Sheth Unavailable [email or web address] Shawn WEI Unavailable Unavailable Problems Active medical history not documented Allergies and Adverse Reactions No Known Drug Allergies (Allergy) Medications Ativan 0.5 MG Oral Tablet; TAKE TABLET 1-2 TABLETS AT BEDTI ME NEEDED Refills: 0 Multivitamins TABS; TAKE 1 TABLET DAILY. Refills: 0 Percocet 5-325 MG Oral Tablet; TAKE 1 TO 2 TABLETS EVERY 4 TO 6 HOURS NEEDED FOR PAIN. Refills: 0 Wellbutrin XL 150 MG Oral Tablet Extended Release 24 H our; TAKE 1 TABLET DAILY. Refills: 0 Cholestyramine 4 GM Oral Packet; MIX THE CONTENTS OF 1 POWDER PACKET WITH 2 TO 6 OZ OF NONCARBONATED BEVERAGE AND DRINK 3 TIMES DAILY. Refills: 0 Ferrous Sulfate 325 (65 Fe) MG Oral Tablet; TAKE 1 TABLET 3 TIMES DAILY. Refills: 0 hydrOXYzine HCl - 50 MG Oral Tablet; TAKE 1 TABLET AT BEDTIM E. Refills: 0 Procedures Procedures not documented Immunizations Immunizations not documented Social History - Smoking Status Former smoker Plan of Treatment Planned Observations Planned Goals not documented Results No Known Results Results not documented Encounters Appointment; Sonido Braden M.D. 26-Jan-2016 14:15 Encounter Diagnosis: Problem not documented
[2019-06-16] MEDS ORDERED: HYDROmorphone INJ 1 MG/ML SYRINGE IV STA (20:43)
[2019-06-16] MEDS ORDERED: ONDANSETRON INJ 2 MG/ML 2 ML VIAL IV STA (20:43)
[2019-06-16] MEDS ORDERED: SODIUM CHLORIDE 0.9% 1000ML 1,000 ML IV SCH (20:45)
[2019-06-16 21:16] LABS: Basophils # (auto) 0.02 K/uL (0-0.2); Basophils % (auto) 0.2 %; Eosinophils # (auto) 0.09 K/uL (0-0.5); Eosinophils % (auto) 0.9 %; Hemoglobin 15.2 g/dL (14.0-18.0); Immature Granulocytes # (auto) 0.03 K/uL (0.00-0.02); Immature Granulocytes % (auto) 0.3 %; Lymphocytes # (auto) 0.89 K/uL (1.2-3.4); Lymphocytes % (auto) 9.1 %; Mean Corpuscular Hemoglobin 30.8 pg (25-34); Mean Corpuscular Hgb Conc 33.8 g/dL (32-36); Mean Corpuscular Volume 91.3 fL (80-100); Mean Platelet Volume 9.8 fL (7.4-10.4); Monocytes # (auto) 0.53 K/uL (0.11-0.59); Monocytes % (auto) 5.4 %; Neutrophils # (auto) 8.27 K/uL (1.4-6.5); Neutrophils % (auto) 84.1 %; Platelet Count 241 K/uL (130-400); RDW Coefficient of Variation 13.2 % (11.5-14.5); RDW Standard Deviation 43.6 fL (36.4-46.3); Red Blood Count 4.93 M/uL (4.7-6.1); White Blood Count 9.83 K/uL (4.8-10.8)
[2019-06-16 21:29] LABS: Appearance Urine Clear (Clear); Bilirubin Urine Negative (Negative); Blood Urine Negative (Negative); Color Urine Dark Yellow; Glucose Urine UA Negative (Negative); Ketones Urine Negative (Negative); Leukocyte Esterase Urine Negative (Negative); Nitrite Urine Negative (Negative); Protein Urine Negative (Negative); Specific Gravity Urine 1.021 (1.000-1.030); Urobilinogen Urine Negative (Negative); pH Urine 7.5 (4.5-7.5)
[2019-06-16 21:35] LABS: Albumin Level 3.7 gm/dl (3.4-5.0); BUN Creatinine Ratio 16.2 (10-20); Calcium 9.2 mg/dl (8.5-10.1); Creatinine Clr Calc Pharmacy 81.8 ml/min; Est GFR (African American) 94.2; Est GFR (Non-African American) 81.3; Potassium 3.5 mmol/L (3.5-5.1)
[2019-06-16 21:39] LABS: Albumin Globulin Ratio 0.9 (0.9-2); Bilirubin,Total 0.4 mg/dl (0.2-1); Globulin 3.9 gm/dl (2.5-4.0); Total Protein 7.6 gm/dl (6.4-8.2)
[2019-06-16] MEDS ORDERED: IOVERSOL 100ml IV PRN (22:01)
--- NOTE | 2019-06-16 22:07 | Emergency Department Note ---
Entered by Carly Macias acting as a scribe for History of Present Illness General Chief complaint: Abdominal Pain Stated complaint: FLARE UP FROM [facility] Time Seen by Provider: 06/16/19 20:29 Source: patient History of Present Illness Provider complaint: Abdominal Pain Onset (ago): hour(s) 4 Location: abdomen (Central) Maximum Pain Intensity: 7 Quality: + sharp Relieved By: + none Associated symptoms: + denies other symptoms (Hematochezia) and + nausea/vomiting; no fever/chills The patient is a 49 year old male who presents to the Emergency Room with complaints of sharp central abdominal pain that began about 4 hours ago. The patient states that it "feels like there is a weighted ball in his abdomen." The patient states that his symptoms are not relieved by anything specific. The patient reports experiencing nausea/vomiting. The patient denies any hematoche harsha or fever/chills. The patient notes that he had a normal bowel movement around 4pm. Home Medications Home Medications Medication Instructions Recorded Confirmed Type tryhvvi-xedjnpvooivlz-ltvicbyb 2 tab PO TID PRN 06/16/19 06/16/19 History [Excedrin Migraine] Allergies Allergy/AdvReac Type Severity Reaction Status Date / Time morphine AdvReac Intermediate N/V Verified 06/16/19 20:31 Past Med/Surg History Medical History (Updated 06/16/19 @ 22:40 by Blanco Abreu MD) Crohns disease (Chronic) Exacerbation of Crohn's disease with intestinal obstruction (Acute) GI bleed (Resolved) SBO (small bowel obstruction) (Acute 03/04/14) Surgical History History of bowel resection Family History Other No pertinent family history in first degree relatives Social History Preferred Language: Hungarian Communication Ability: Effective 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 and A total of 10 systems reviewed and were otherwise negative Physical Exam Vital Signs Vital Signs - 24 hr 06/16/19 20:00 06/16/19 21:07 06/16/19 21:08 Temperature 36.8 C Temperature Source Oral Pulse Rate 90 82 81 Pulse Rate from SpO2 Sensor 82 Respiratory Rate 20 16 20 Respiratory Effort / Characteristics Non-Labored Spontaneous Respiratory Depth Normal Blood Pressure 137/89 135/85 Blood Pressure Mean 105 101 Blood Pressure Position Sitting Pulse Oximetry 98 96 95 Oxygen Delivery Method Room Air Room Air Sepsis Recent Fever Within 48 Hours No Sepsis Action Taken by Nursing No Action Required 06/16/19 21:12 06/16/19 21:30 06/16/19 21:31 Temperature Temperature Source Pulse Rate 88 78 72 Pulse Rate from SpO2 Sensor 83 77 70 Respiratory Rate 21 22 13 Respiratory Effort / Characteristics Respiratory Depth Blood Pressure 138/81 Blood Pressure Mean 91 Blood Pressure Position Pulse Oximetry 96 97 Oxygen Delivery Method Sepsis Recent Fever Within 48 Hours Sepsis Action Taken by Nursing 06/16/19 22:07 Temperature Temperature Source Pulse Rate 82 Pulse Rate from SpO2 Sensor Respiratory Rate 19 Respiratory Effort / Characteristics Respiratory Depth Blood Pressure Blood Pressure Mean Blood Pressure Position Pulse Oximetry Oxygen Delivery Method Sepsis Recent Fever Within 48 Hours Sepsis Action Taken by Nursing General: Uncomfortable-appearing middle age male in no acute distress. Complaining of abdominal pain. HEENT: Normal cephalic atraumatic. Pupils are equal round and reactive to light. Extraocular movements are intact. Oropharynx is pink with moist mucous membranes. No swelling of the mouth lips or tongue. Neck: Supple with a midline trachea. No meningeal signs or stiffness, no JVD or bruits. No Stridor. Chest: Clear to auscultation bilaterally. No wheezes or rhonchi. No increased work of breathing. Heart: regular rate and rhythm. Abdomen: Soft and mildly diffusely tender, nondistended without rebound guarding or rigidity. Extremities: No cyanosis clubbing or edema. No calf tenderness or asymmetry Spine/Back. Non tender to palpation. No CVA tenderness Skin: Good turgor without rashes. Neurologic exam: Cranial nerves two through 12 are intact. Motor and sensation are intact and symmetrical throughout. Course Course 2033: Past medical records reviewed. The patient was evaluated in room B05. A complete history and physical exam was performed. 2215: I reevaluated the patient and he is feeling better. 2228: I spoke with Dr. Samano- Hospitalist about the patient's case and he will accept the patient for further evaluation. Administered Medications Ioversol (Optiray 320 100ml) 94 ml IV ONCE PRN PRN Reason: Interaction Checking Stop: 06/20/19 22:00 Last Admin: 06/16/19 22:01 Dose: 94 ml Documented by: [id number] Discontinued Medications Hydromorphone HCl (Dilaudid) 1 mg IV NOW STA Stop: 06/16/19 20:44 Last Admin: 06/16/19 21:10 Dose: 1 mg Documented by: [id number] Sodium Chloride (Nss 1000ml) 1,000 mls @ 999 mls/hr IV .Q1H1M MO Stop: 06/16/19 21:45 Last Infusion: 06/16/19 22:26 Dose: 0 mls/hr Documented by: [id number] Admin: 06/16/19 21:09 Dose: 999 mls/hr Documented by: [id number] Ondansetron HCl (Zofran) 4 mg IV NOW STA Stop: 06/16/19 20:44 Last Admin: 06/16/19 21:09 Dose: 4 mg Documented by: [id number] Medical Decision Making Differential Diagnosis Differential diagnosis includes: Bowel obstruction, Infection, Complication from Chrohn's disease, Diverticulitis, Appendicitis, Sepsis, as well as others were entertained. Medical Records Attestation: I reviewed the patient's medical records. Home Medications Current Medication List: was personally reviewed by me Laboratory Data Attestation: I reviewed the patient's lab results. Result diagrams: 06/16/19 20:55 06/16/19 20:55 Lab Results 06/16/19 06/16/19 06/16/19 Range/Units 20:55 20:55 21:11 WBC 9.83 (4.8-10.8) K/uL RBC 4.93 (4.7-6.1) M/uL Hgb 15.2 (14.0-18.0) g/dL Hct 45.0 (42-52) % MCV 91.3 (80-100) fL MCH 30.8 (25-34) pg MCHC 33.8 (32-36) g/dL RDW Std Deviation 43.6 (36.4-46.3) fL RDW Coeff of Angelina 13.2 (11.5-14.5) % Plt Count 241 (130-400) K/uL MPV 9.8 (7.4-10.4) fL Immature Gran % (Auto) 0.3 % Neut % (Auto) 84.1 % Lymph % (Auto) 9.1 % Harris % (Auto) 5.4 % Eos % (Auto) 0.9 % Baso % (Auto) 0.2 % Immature Gran # (Auto) 0.03 H (0.00-0.02) K/uL Neut # (Auto) 8.27 H (1.4-6.5) K/uL Lymph # (Auto) 0.89 L (1.2-3.4) K/uL Harris # (Auto) 0.53 (0.11-0.59) K/uL Eos # (Auto) 0.09 (0-0.5) K/uL Baso # (Auto) 0.02 (0-0.2) K/uL Sodium 141 (136-145) mmol/L Potassium 3.5 (3.5-5.1) mmol/L Chloride 105 (98-107) mmol/L Carbon Dioxide 29 (21-32) mmol/L Anion Gap 7.0 (3-11) BUN 18 (7-18) mg/dl Creatinine 1.08 (0.6-1.4) mg/dl Est Cr Clr Drug Dosing 81.8 ml/min Est GFR ( Amer) 94.2 Est GFR (Non-Af Amer) 81.3 BUN/Creatinine Ratio 16.2 (10-20) Glucose 99 (70-99) mg/dl Calcium 9.2 (8.5-10.1) mg/dl Total Bilirubin 0.4 (0.2-1) mg/dl AST 31 (15-37) U/L ALT 79 H (12-78) U/L Alkaline Phosphatase 84 (45-117) U/L Total Protein 7.6 (6.4-8.2) gm/dl Albumin 3.7 (3.4-5.0) gm/dl Globulin 3.9 (2.5-4.0) gm/dl Albumin/Globulin Ratio 0.9 (0.9-2) Lipase 123 (73-393) U/L Urine Color Dark Yellow Urine Appearance Clear (Clear) Urine pH 7.5 (4.5-7.5) Ur Specific [place] 1.021 (1.000-1.030) Urine Protein Negative (Negative) Urine Glucose (UA) Negative (Negative) Urine Ketones Negative (Negative) Urine Blood Negative (Negative) Urine Nitrite Negative (Negative) Urine Bilirubin Negative (Negative) Urine Urobilinogen Negative (Negative) Ur Leukocyte Esterase Negative (Negative) Imaging Data Radiologist's Impression: Radiology results as stated below per my review and the radiologist's interpretation: ABDOMEN AND PELVIS CT WITH IV CONTRAST CT DOSE: 409.27 mGy.cm HISTORY: Generalized abd pain, crohns, eval for obs TECHNIQUE: Multiaxial CT images of the abdomen and pelvis were performed following the use of intravenous contrast. A dose lowering technique was utilized adhering to the principles of ALARA. COMPARISON STUDY: Abdomen and pelvis CT 03/20/2018. FINDINGS: The lung bases are clear. No pneumoperitoneum. No pneumatosis. No fractures within the visualized osseous structures. Hepatic steatosis. The g allbladder, pancreas, spleen, and adrenal glands are unremarkable. Normal kidneys. No hydronephrosis. The main portal vein is patent. No retroperitoneal lymphadenopathy. Normal caliber abdominal aorta. The bladder is unremarkable. Prior right hemicolectomy with ileocolonic anastomosis. There is focal narrowing within the distal ileum approximately 20 cm proximal to the ileocolonic anastomosis. This results in the transition point of a small bowel obstruction and is best seen on image 286. The bowel loops proximal to this transition point are dilated and fluid-filled measuring up to 3.6 cm in diameter. This is similar to the previous study. There is mild thickening involving the distal ileum from the transition point to the ileocolonic anastomosis measuring a total length of approximately 20 cm. This favors mild acute on chronic Crohn's disease. A few mildly enlarged mesenteric lymph nodes, unchanged. IMPRESSION: 1. Small bowel obstruction with a transition point located at the distal ileum as described above. The distal 20 cm of the ileum from the transition point to the ileocolonic anastomosis are slightly thickened. Therefore, these findings are consistent with acute on chronic Crohn's disease. 2. No abscess identified. 3. Prior right hemicolectomy with ileocolonic anastomosis. 4. Hepatic steatosis. ACT 112: Negative or not required by law. Electronically signed by: Cody Teran M.D. 06/16/2019 10:18 PM Blood Pressure Blood Pressure Findings: Elevated blood pressure Blood Pressure Disposition: further management by hospitalist JUAN Abrams This patient comes in as described above. He was placed in room B5. He has a history of Crohn's disease and feels like he is having a flareup he has diffuse abdominal pain he has vomited and appears very uncomfortable he said no definite fever. His is at the bedside he is not driving. IV access was established. he was hydrated 1 L IV normal saline bolus. he was given Dilaudid 1 mg IV and Zofran 4 mg IV. He has no white count or fever to suggest infection. She has no acute electrolyte or metabolic abnormalities. He has nothing suggest liver gallbladder or pancreas disease. CAT scan was obtained and shows small bowel obstruction with acute on chronic Crohn's symptoms. Given his small bowel obstruction I do think he needs to be admitted/observe for IV hydration bowel rest and pain and nausea management as well as GI consultation. Have consulted Dr. Samano to see him in the ER for these measures. Impression & Plan Small bowel obstruction, Abdominal pain, Acute Crohn's disease, Vomiting Discharge Plan Visit Data Chief Complaint: Abdominal Pain Stated Complaint: FLARE UP FROM [facility] ED Provider: Blanco Abreu Discharge Problem: Small bowel obstruction, Abdominal pain, Acute Crohn's disease, Vomiting Forms Stand Alone Forms: Call Back Authorization, [facility] Prescriptions Prescriptions: No Action Excedrin Migraine 250-250-65 mg Tablet 2 tab PO TID PRN (Reason: Migraine Headache) RF: 0 Discharge Problem: Abdominal pain Qualifiers: Abdominal location: unspecified location Qualified Code(s): R10.9 - Unspecified abdominal pain Acute Crohn's disease Qualifiers: Digestive disease complication type: unspecified complication Qualified C ode(s): K50.919 - Crohn's disease, unspecified, with unspecified complications Vomiting Qualifiers: Vomiting type: unspecified Vomiting Intractability: non-intractable Nausea presence: unspecified Qualified Code(s): R11.10 - Vomiting, unspecified The scribe's documentation has been prepared under my direction and personally reviewed by me in its entirety. I confirm that the note above accurately reflects all work, treatment, procedures, and medical decision making performed by me.
--- NOTE | 2019-06-16 22:19 | CT Scan Report ---
ABDOMEN AND PELVIS CT WITH IV CONTRAST CT DOSE: 409.27 mGy.cm HISTORY: Generalized abd pain, crohns, eval for obs TECHNIQUE: Multiaxial CT images of the abdomen and pelvis were performed following the use of intrave nous contrast. A dose lowering technique was utilized adhering to the principles of ALARA. COMPARISON STUDY: Abdomen and pelvis CT 03/20/2018. FINDINGS: The lung bases are clear. No pneumoperitoneum. No pneumatosis. No fractures within the visu alized osseous structures. Hepatic steatosis. The gallbladder, pancreas, spleen, and adrenal glands a re unremarkable. Normal kidneys. No hydronephrosis. The main portal vein is patent. No retroperitonea l lymphadenopathy. Normal caliber abdominal aorta. The bladder is unremarkable. Prior right hemicolec milton with ileocolonic anastomosis. There is focal narrowing within the distal ileum approximately 20 cm proximal to the ileocolonic anastomosis. This results in the transition point of a small bowel obs truction and is best seen on image 286. The bowel loops proximal to this transition point are dilated and fluid-filled measuring up to 3.6 cm in diameter. This is similar to the previous study. There is mild thickening involving the distal ileum from the transition point to the ileocolonic anastomosis measuring a total length of approximately 20 cm. This favors mild acute on chronic Crohn's disease. A few mildly enlarged mesenteric lymph nodes, unchanged. IMPRESSION: 1. Small bowel obstruction with a transition point located at the distal ileum as described above. Th e distal 20 cm of the ileum from the transition point to the ileocolonic anastomosis are slightly thi ckened. Therefore, these findings are consistent with acute on chronic Crohn's disease. 2. No abscess identified. 3. Prior right hemicolectomy with ileocolonic anastomosis. 4. Hepatic steatosis. ACT 112: Negative or not required by law. Electronically signed by: Cody Teran M.D. 06/16/2019 10:18 PM
--- NOTE | 2019-06-17 00:38 | History & Physical Report ---
Date of Service June 17, 2019 Assessment & Plan (1) Small bowel obstruction: - As noted on the CT Abd - Currently tolerating secretions with controlled nausea s/p Zofran without NG tube. Notes no problem with NG tube placement if needed, but he would prefer to wait for placement if he has intractable nausea/vomiting. - NPO - No current electrolyte abnormalities, trend and replace as indicated; also WBC WNL w/o leukocytosis - Consult GI - Most likely from Adhesions from previous surgery - No peritoneal signs - IVFs @ 125mL/hr with NSS while NPO - Treat pain with Dilaudid 1mg IV and Nausea with Zofran 4mg IV - Aspiration precautions Code: Full Code DVT ppx: SCDs, defer chemical in setting of Crohn's and hx of GI bleed FENGI: Strict NPO, Pepcid 20mg IV BID Dispo: Full admit, PCU/tele (2) Abdominal pain: As above, secondary to SBO and Crohn's (3) Acute Crohn's disease: As noted above -No signs of abscess on CT Abd, so will defer for Cipro/Flagyl treatment to GI/day team. -Was relayed to have received steroids in ED, but cannot see in EMR and went to ED to verify, ED nurse stated did not receive steroids; so will order Solu- Medrol 80mg IV (1mg/kg dosing) (4) Vomiting: Control with Zofran 4mg IV PRN Currently tolerating secretions Hold NG Tube placement but if not tolerating secretions, having intractable nausea/vomiting, will need placement for decompression. History of Present Illness Chief Complaint: SBO; Crohn's Flair Primary Care Provider: BRANDEN Sanz Mr. James Sewell is a 49 y/o male with past medical history of Crohn's Disease w/ileocecal resection and resection for adhesions, abdominal surgeries x4, SBO, GI bleed who presented to [facility] with Abdominal Pain. He notes onset of abdominal pain at 6pm this evening that worsened. He notes pain felt like typical crohn's but location was central and typically his crohn's is located to left sided for pain. He notes feeling nauseous and had one episode of vomiting on way to ED. He notes having a normal BM prior to onset of pain without black/bloody stool appearance. He characterizes pain as stabbing. He notes nausea and pain are improved s/p Dilaudid 1mg IV and Zofran 4mg IV in ED. He does not currently have a NG tube in place and notes that he is willing to have NG tube placed if his nausea worsens or becomes intractable with anti-emetics. He has not passed gas since onset of pain. He notes feeling hot and cold earlier today without measured fever. He ate a piece of pizza today and some pretezels with cheese but states has not had much to eat. He states he previously followed with Dr. Leonial CARBAJAL but notes he might have been discharged from practice. He states "I wasn't a very good patient" noting that he missed scheduled appointments because of work and that last appointment he put date in calender wrong and showed up a day early. He noted that he then had to go out of town and missed appointment. He notes 4 prior surgeries with 3 at [facility] and last at [facility] in 2018. In ED, he received Dilaudid 1mg IV x1, Zofran 4mg IV x1, 1L NSS Bolus, he also was noted to have a dose of steroids in the ED. His CT Abdomen showed a SBO with focal narrowing within the distal ileum approximately 20 cm proximal to the ileocolonic anastomosis, resulting in the transition point of a small bowel obstruction. The bowel loops proximal to this transition point are dilated and fluid-filled measuring up to 3.6 cm in diameter. Similar to the previous study. There is mild thickening involving the distal ileum from the transition point to the ileocolonic anastomosis measuring a total length of approximately 20 cm. This favors mild acute on chronic Crohn's disease. A few mildly enlarged mesenteric lymph nodes, unchanged. Allergies Allergy/AdvReac Type Severity Reaction Status Date / Time morphine AdvReac Intermediate N/V Verified 06/16/19 20:31 Home Medications Home Medications Medication Instructions Recorded Confirmed Type bbesbxa-iwmrhoyimengo-tvsmmpbe 2 tab PO TID PRN 06/16/19 06/16/19 History [Excedrin Migraine] Past Med/Surg History Medical History (Updated 06/16/19 @ 22:40 by Blanco Abreu MD) Crohns disease (Chronic) Exacerbation of Crohn's disease with intestinal obstruction (Acute) GI bleed (Resolved) SBO (small bowel obstruction) (Acute 03/04/14) Surgical History History of bowel resection Family History Other No pertinent family history in first degree relatives Social History Preferred Language: Honduran Communication Ability: Effective 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 Beliefs That Will Affect Care: None Current Living Situation: Spouse Current Living Situation Comment: lives with Other Information That Helps Us Care for You: No Feels Safe at Home: Yes Safety Concerns: Feels Safe At This Time Smoking Status: Never smoker Hx Alcohol Use: No Hx Substance Use: No Review of Systems Review of Systems: All systems reviewed & are unremarkable except as noted in HPI & below Constitutional: + fever (subjective) and + chills Eyes: no diplopia and no worsening vision Ear, Nose, Mouth, Throat: no nasal congestion and no sore throat Respiratory: no cough and no dyspnea Cardiovascular: no chest pain Gastrointestinal: + abdominal pain, + nausea and + vomiting; no coffee ground emesis and no diarrhea/loose stools Genitourinary: no dysuria and no difficulty urinating Musculoskeletal: no back pain and no neck pain Integumentary: no rash Neurologic: no numbness and no confusion Physical Exam Constitutional: WD/WN, vitals as above cooperative and comfortable Eyes: PERRL, conjunctivae normal, anicteric sclerae ENMT: external ear and nose normal, oropharynx normal Neck: normal visual inspection and trachea midline Respiratory: normal respiratory effort, lungs clear to auscultation Cardiovascular: RRR, no murmur, no edema Gastrointestinal (Abdomen): Inspection/Auscultation: normal bowel sounds Percussion/Palpation: abdomen soft; abdomen nontender, no guarding and abdomen not rigid old well healed midline surgical scar; no rebound Musculoskeletal: Head/Neck/Chest: normocephalic and head atraumatic Skin: no rashes, warm and dry Neurologic: moves all extremities and awake Psychiatric: A+Ox3, euthymic affect Results & Data Vital Signs (Past 12 Hours) Vital Signs Temp Pulse Pulse Resp BP BP Pulse Ox 06/16/19 23:40 71 18 118/71 92 06/16/19 22:31 78 18 93 06/16/19 22:30 83 18 119/78 94 06/16/19 22:11 81 18 123/74 89 L 06/16/19 22:07 82 19 06/16/19 21:31 72 13 06/16/19 21:30 78 22 138/81 97 06/16/19 21:12 88 21 96 06/16/19 21:08 81 20 95 06/16/19 21:07 82 16 135/85 96 06/16/19 20:00 36.8 C 90 20 137/89 98 Medications Administered Ioversol (Optiray 320 100ml) 94 ml IV ONCE PRN PRN Reason: Interaction Checking Stop: 06/20/19 22:00 Last Admin: 06/16/19 22:01 Dose: 94 ml Documented by: [id number] Code Status & VTE Plan Code Status Full Code VTE Prophylaxis Plan VTE Prophylaxis will be ordered: Yes Reason for no VTE drug order: Contraindicated (Active Crohn's prior GI bleed) Supervising Physician Co-Signing Physician Notes Patient was seen and examined by me personally. I reviewed the chart, the orders and discussed the case in detail with Dr. Donaldo Urbano DO . I read this H&P and agree with its contents to entirety. Resident Activity Tracking Resident Involvement: Resident Care Provided Care Provided: Adult Hospital Medicine (1) Acute Crohn's disease Digestive disease complication type: unspecified complication Qualified Code(s): K50.919 - Crohn's disease, unspecified, with unspecified complications (2) Abdominal pain Abdominal location: unspecified location Qualified Code(s): R10.9 - Unspecified abdominal pain (3) Vomiting Nausea presence: unspecified Vomiting Intractability: non-intractable Vomiting type: unspecified Qualified Code(s): R11.10 - Vomiting, unspecified
[2019-06-17] MEDS ORDERED: methylPREDNISolone 125 MG/2 ML VIAL IV STA (00:55)
[2019-06-17] MEDS ORDERED: HYDROmorphone INJ 1 MG/ML SYRINGE IV PRN (01:14)
[2019-06-17] MEDS ORDERED: ONDANSETRON INJ 2 MG/ML 2 ML VIAL IV PRN (01:14)
[2019-06-17] MEDS ORDERED: ACETAMINOPHEN 1,000 MG/100 ML VIAL IV PRN (01:14)
[2019-06-17] MEDS: SODIUM CHLORIDE 0.9% 1000ML 1,000 ML IV SCH ×3 (01:58→17:55)
[2019-06-17] MEDS: FAMOTIDINE 20 MG in SYRINGE 3 ML IV SCH ×3 (01:58→21:14)
--- NOTE | 2019-06-17 06:35 | Billing Data ---
Date of Service June 17, 2019 Coding Level of Care Code 62389 Initial Inpt Care Lvl 3
--- NOTE | 2019-06-17 10:32 | Hospitalist Progress Note ---
Date of Service June 17, 2019 Assessment & Plan (1) Small bowel obstruction: due to possible flare of Crohns or could be due to adhesions given prior surgeries symptoms much better this morning, no nausea, minimal pain had some flatus last night and a BM on 06/16 will give clear liquids for today and monitor for any return of symptoms continue Solu Medrol 40 q12 for possible Crohn's component (2) Abdominal pain: much better Dilaudid PRN Solu Medrol (3) Acute Crohn's disease: in remission according to patient and family he has not been on any maintenance medication since 2016 h/o several sticturoplasty and bowel resections will give Solu Medrol 40q12 for now [facility] consulted (4) Vomiting: resolved since last night will downgrade to medical floor advance diet to clears Subjective patient feeling better this morning, no nausea since last night after he arrived on the floor last BM was at 4pm yesterday prior to pain starting, BM was solid, no blood he did have some flatus last night, no flatus this morning he says he can feel his "guts rolling, jean" and it will make pain a little worse but passes quickly he is open to trying some clear liquids since his symptoms are much better reviewed labs, CBC and CMP are within normal limits reviewed chart since admission will wait for [facility] to see later today Review of Systems Review of Systems: All systems reviewed & are unremarkable except as noted in HPI & below Gastrointestinal: + abdominal pain and + constipation; no nausea, no vomiting, no diarrhea/loose stools and no blood in stools Physical Exam Constitutional: WD/WN, vitals as above Eyes: PERRL, conjunctivae normal, anicteric sclerae ENMT: external ear and nose normal, oropharynx normal Neck: trachea midline, no thyromegaly Respiratory: normal respiratory effort, lungs clear to auscultation Cardiovascular: RRR, no murmur, no edema Gastrointestinal (Abdomen): Inspection/Auscultation: abdomen normal to inspection, + abdominal surgical scar (Midline) and + hypoactive bowel sounds; abdomen not distended Percussion/Palpation: + abdomen tender, abdomen soft and normal to percussion; no guarding and abdomen not rigid Musculoskeletal: no cyanosis or clubbing, extremities motor strength 5/5 Skin: no rashes, warm and dry Neurologic: patellar DTR's 2+ bilat, sensation intact and PERRL, EOMI, accommodation nl, no face palsy, no dysarthria Psychiatric: A+Ox3, euthymic affect Lymphatic: no cervical or axillary lymphadenopathy Results & Data ([facility]) Vital Signs (Past 12 Hours) Vital Signs Temp Pulse Pulse Resp BP BP Pulse Ox 06/17/19 07:15 36.9 C 66 20 114/75 96 06/17/19 03:43 72 06/17/19 03:34 36.8 C 67 17 116/60 97 06/17/19 01:00 36.5 C 68 18 133/77 95 06/16/19 23:40 71 18 118/71 92 06/16/19 22:31 78 18 93 06/16/19 22:30 83 18 119/78 94 Laboratory Results Laboratory Results - last 24 hr 06/16/19 06/16/19 06/16/19 20:55 20:55 21:11 WBC 9.83 RBC 4.93 Hgb 15.2 Hct 45.0 MCV 91.3 MCH 30.8 MCHC 33.8 RDW Std Deviation 43.6 RDW Coeff of Angelina 13.2 Plt Count 241 MPV 9.8 Immature Gran % (Auto) 0.3 Neut % (Auto) 84.1 Lymph % (Auto) 9.1 [place] % (Auto) 5.4 Eos % (Auto) 0.9 Baso % (Auto) 0.2 Immature Gran # (Auto) 0.03 H Neut # (Auto) 8.27 H Lymph # (Auto) 0.89 L [place] # (Auto) 0.53 Eos # (Auto) 0.09 Baso # (Auto) 0.02 Sodium 141 Potassium 3.5 Chloride 105 Carbon Dioxide 29 Anion Gap 7.0 BUN 18 Creatinine 1.08 Est Cr Clr Drug Dosing 81.8 Est GFR ( Amer) 94.2 Est GFR (Non-Af Amer) 81.3 BUN/Creatinine Ratio 16.2 Glucose 99 Calcium 9.2 Total Bilirubin 0.4 AST 31 ALT 79 H Alkaline Phosphatase 84 Total Protein 7.6 Albumin 3.7 Globulin 3.9 Albumin/Globulin Ratio 0.9 Lipase 123 Urine Color Dark Yellow Urine Appearance Clear Urine pH 7.5 Ur Specific [place] 1.021 Urine Protein Negative Urine Glucose (UA) Negative Urine Ketones Negative Urine Blood Negative Urine Nitrite Negative Urine Bilirubin Negative Urine Urobilinogen Negative Ur Leukocyte Esterase Negative Medications Administered Current Inpatient Medications Hydromorphone HCl (Dilaudid) 1 mg IV Q4H PRN PRN Reason: Pain Stop: 07/01/19 01:13 Last Admin: 06/17/19 02:04 Dose: 1 mg Documented by: Famotidine 20 mg/ Syringe 5 mls @ 2.5 mls/min IV BID MO Stop: 07/17/19 00:59 Last Admin: 06/17/19 07:51 Dose: 2.5 mls/min Documented by: Sodium Chloride (Nss 1000ml) 1,000 mls @ 125 mls/hr IV .Q8H MO Stop: 07/17/19 01:13 Last Admin: 06/17/19 07:51 Dose: 125 mls/hr Documented by: Acetaminophen (Ofirmev) 1,000 mg in 100 mls @ 400 mls/hr IV Q8H PRN PRN Reason: Fever Stop: 06/20/19 01:13 Ondansetron HCl (Zofran) 4 mg IV Q6H PRN PRN Reason: Nausea Stop: 07/17/19 01:13 Last Admin: 06/17/19 02:04 Dose: 4 mg Documented by: PG Care Time/CCT Total # of Minutes Spent Total Time Spent with Patient: Total time spent is greater than 50% in coordination of care (as documented) at patient's floor/unit and/or counseling patient: Coding Level of Care Code 44312 Subseq Hosp Care Lvl 2 Diagnoses Small bowel obstruction K56.609 Abdominal pain R10.9 Abdominal location: unspecified location Acute Crohn's disease K50.919 Digestive disease complication type: unspecified complication Vomiting R11.10 Nausea presence: unspecified Vomiting Intractability: non-intractable Vomiting type: unspecified (1) Abdominal pain Abdominal location: unspecified location Qualified Code(s): R10.9 - Unspecified abdominal pain (2) Acute Crohn's disease Digestive disease complication type: unspecified complication Qualified Code(s): K50.919 - Crohn's disease, unspecified, with unspecified complications (3) Vomiting Nausea presence: unspecified Vomiting Intractability: non-intractable Vomiting type: unspecified Qualified Code(s): R11.10 - Vomiting, unspecified
[2019-06-17] MEDS: methylPREDNISolone 40 MG in SYRINGE 0 ML IV SCH (13:09)
--- NOTE | 2019-06-17 15:27 | Consultation Report ---
DATE OF CONSULTATION: 06/17/2019 GASTROINTESTINAL CONSULTATION NOTE REASON FOR CONSULTATION: Bowel obstruction. HISTORY OF PRESENT ILLNESS: The patient is a 49-year-old with longstanding ileal Crohn's disease. Unfortunately, the patient has had problems with insurance coverage and has been remiss in following up in the office and taking medications. He has been off medications for a couple of years now. In the past, he has had a stricturing ileal Crohn's disease and has had about 4 operations for resections and adhesions. The patient has been doing well as an outpatient with no abdominal pain, fevers, night sweats, weight loss, blood in the stool or diarrhea. Two days ago, he started having some crampy abdominal pain and then last night it got significantly worse. He vomited large amounts and then presented to the Emergency Room. He was started on IV Solu-Medrol and a CAT scan was performed. The CAT scan showed some narrowing of the distal ileum and then just above that, there is a knuckle in the small intestine that appears to be adhesed to the anterior abdominal wall in the exact location where his pain was. There also appears to be some surgical clips in that area. Proximal to this is a dilated small bowel suggesting a mechanical blockage. The patient said that the pain was different from his Crohn's pain that he has had in the past. PAST MEDICAL HISTORY: Remarkable for ileal Crohn's, bowel resections for adhesions. OUTPATIENT MEDICATIONS: Excedrin Migraine for headaches. ALLERGIES: MORPHINE IS THE ONLY ALLERGY. FAMILY HISTORY: Negative for any GI diseases. SOCIAL HISTORY: The patient is . He does not smoke, does not use any alcohol. REVIEW OF SYSTEMS: Positive only for abdominal pain. The remainder is negative. PHYSICAL EXAMINATION: GENERAL: The patient appears awake, alert, in no acute distress. VITAL SIGNS: Blood pressure is 120/70, pulse is 80 and regular. ABDOMEN: Shows midline scar. There is tenderness right along the incision line in about 3 cm below the umbilicus. No mass or rebound are appreciated. NEUROLOGIC: Nonfocal. IMPRESSION AND PLAN: The patient presented with small-bowel obstruction. I think this is a mechanical obstruction from a knuckle in the small bowel from adhesion, which appears to be attached to the anterior abdominal wall in the midline rather than distal ileal Crohn's disease, although he could have both. He is currently on 40 mg of Solu-Medrol twice a day. At this point, I would recommend a surgical consultation to get their opinion about whether surgical intervention may be necessary.
--- NOTE | 2019-06-17 16:58 | Surgery Consultation ---
Date of Consultation June 17, 2019 Assessment & Plan (1) Small bowel obstruction: 49 year-old male with history of Crohn's disease and right hemicolectomy with ileocolonic anastomsis and abdominal surgeries x 4 with history of strictureplasty who presented to ED with abdominal pain, nausea, and vomiting after ingesting larger meal. CT scan showing SBO with transition zone at terminal ileum and wall thickening of 20 cm proximally consisent with acute on chronic crohn's disease. Abdomen is soft, positive return of bowel function, no leukocytosis. Plan: No acute surgical intervention required Continue conservative management Continue clear liquids Continue GI management of Crohn's Advised patient to eat smaller frequent meals, avoid dense foods, and chew food very slowly and carefully. Continue medical management will follow along (2) Acute Crohn's disease: Dr. Turner has seen patient and present during my examination, agrees with above. History of Present Illness Reason for Consultation: Mechanical SBO Requesting Physician: Curtis Keen Attending Physician: Amari Castro, DO History of Present Illness James Sewell is a 49 y/o male with past medical history of Crohn's Disease w/ileocecal resection and resection for adhesions, abdominal surgeries x4, SBO, GI bleed who presented to [facility] with Abdominal Pain. Abdominal pain started in the evening around 6 pm. He notes pain felt like typical crohn's but location was central and typically his crohn's is located to left sided for pain. He notes feeling nauseous and had one episode of vomiting on way to ED. He notes having a normal BM prior to onset of pain. He states his pain was severe until he received dose of Dilaudid in the emergency room. He had 3 of his surgeries at [facility] and last surgery in [place] in 2018. Had a similar episode prior after eating large meal. Had piece of pizza prior to this event. Er work-up included CT scan of abdomen and pelvis which showed Small bowel obstruction with a transition point located at the distal ileum as described above. The distal 20 cm of the ileum from the transition point to the ileocolonic anastomosis are slightly thickened. Therefore, these findings are consistent with acute on chronic Crohn's disease. James currently states he is feeling great today. No abdominal pain, no nausea or vomiting. Passing gas and has had a few bowel movements. Tolerated liquids without any difficulty. Does not feel distention. Allergies Allergy/AdvReac Type Severity Reaction Status Date / Time morphine AdvReac Intermediate N/V Verified 06/16/19 20:31 Home Medications Home Medications Medication Instructions Recorded Confirmed Type shenucx-xakgnzexjvedy-zavqtohy 2 tab PO TID PRN 06/16/19 06/16/19 History [Excedrin Migraine] Patient History Medical History (Updated 06/16/19 @ 22:40 by Blanco Abreu MD) Crohns disease (Chronic) Exacerbation of Crohn's disease with intestinal obstruction (Acute) GI bleed (Resolved) SBO (small bowel obstruction) (Acute 03/04/14) Surgical History History of bowel resection Family History Other No pertinent family history in first degree relatives Social History Preferred Language: [place] Communication Ability: Effective 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 Beliefs That Will Affect Care: None Current Living Situation: Spouse Current Living Situation Comment: lives with Other Information That Helps Us Care for You: No Feels Safe at Home: Yes Safety Concerns: Feels Safe At This Time Smoking Status: Never smoker Hx Alcohol Use: No Hx Substance Use: No Physical Exam Constitutional: WD/WN, vitals as above no acute distress Respiratory: normal respiratory effort; no respiratory distress Gastrointestinal (Abdomen): Inspection/Auscultation: abdomen normal to inspection, normal bowel sounds and + abdominal surgical scar (midline laparotomy scar); abdomen not distended Percussion/Palpation: abdomen soft; a bdomen nontender, no guarding and abdomen not rigid Skin: no rashes, warm and dry Psychiatric: A+Ox3, euthymic affect Results & Data Vital Signs (Past 12 Hours) Vital Signs Temp Pulse Pulse Resp BP BP Pulse Ox 06/17/19 15:50 36.8 C 66 18 150/90 H 95 06/17/19 11:15 36.6 C 75 16 131/85 96 06/17/19 10:47 36.7 C 72 74 18 117/79 94 06/17/19 07:15 36.9 C 66 20 114/75 96 Laboratory Results 06/16/19 06/16/19 06/16/19 Range/Units 21:11 20:55 20:55 WBC 9.83 (4.8-10.8) K/uL RBC 4.93 (4.7-6.1) M/uL Hgb 15.2 (14.0-18.0) g/dL Hct 45.0 (42-52) % MCV 91.3 (80-100) fL MCH 30.8 (25-34) pg MCHC 33.8 (32-36) g/dL RDW Std Deviation 43.6 (36.4-46.3) fL RDW Coeff of Angelina 13.2 (11.5-14.5) % Plt Count 241 (130-400) K/uL MPV 9.8 (7.4-10.4) fL Immature Gran % (Auto) 0.3 % Neut % (Auto) 84.1 % Lymph % (Auto) 9.1 % [place] % (Auto) 5.4 % Eos % (Auto) 0.9 % Baso % (Auto) 0.2 % Immature Gran # (Auto) 0.03 H (0.00-0.02) K/uL Neut # (Auto) 8.27 H (1.4-6.5) K/uL Lymph # (Auto) 0.89 L (1.2-3.4) K/uL [place] # (Auto) 0.53 (0.11-0.59) K/uL Eos # (Auto) 0.09 (0-0.5) K/uL Baso # (Auto) 0.02 (0-0.2) K/uL Sodium 141 (136-145) mmol/L Potassium 3.5 (3.5-5.1) mmol/L Chloride 105 (98-107) mmol/L Carbon Dioxide 29 (21-32) mmol/L Anion Gap 7.0 (3-11) BUN 18 (7-18) mg/dl Creatinine 1.08 (0.6-1.4) mg/dl Est Cr Clr Drug Dosing 81.8 ml/min Est GFR ( Amer) 94.2 Est GFR (Non-Af Amer) 81.3 BUN/Creatinine Ratio 16.2 (10-20) Glucose 99 (70-99) mg/dl Calcium 9.2 (8.5-10.1) mg/dl Total Bilirubin 0.4 (0.2-1) mg/dl AST 31 (15-37) U/L ALT 79 H (12-78) U/L Alkaline Phosphatase 84 (45-117) U/L Total Protein 7.6 (6.4-8.2) gm/dl Albumin 3.7 (3.4-5.0) gm/dl Globulin 3.9 (2.5-4.0) gm/dl Albumin/Globulin Ratio 0.9 (0.9-2) Lipase 123 (73-393) U/L Urine Color Dark Yellow Urine Appearance Clear (Clear) Urine pH 7.5 (4.5-7.5) Ur Specific [place] 1.021 (1.000-1.030) Urine Protein Negative (Negative) Urine Glucose (UA) Negative (Negative) Urine Ketones Negative (Negative) Urine Blood Negative (Negative) Urine Nitrite Negative (Negative) Urine Bilirubin Negative (Negative) Urine Urobilinogen Negative (Negative) Ur Leukocyte Esterase Negative (Negative) Diagnostic Findings ABDOMEN AND PELVIS CT WITH IV CONTRAST CT DOSE: 409.27 mGy.cm HISTORY: Generalized abd pain, crohns, eval for obs TECHNIQUE: Multiaxial CT images of the abdomen and pelvis were performed following the use of intravenous contrast. A dose lowering technique was utilized adhering to the principles of ALARA. COMPARISON STUDY: Abdomen and pelvis CT 03/20/2018. FINDINGS: The lung bases are clear. No pneumoperitoneum. No pneumatosis. No fractures within the visualized osseous structures. Hepatic steatosis. The gallbladder, pancreas, spleen, and adrenal glands are unremarkable. Normal kidneys. No hydronephrosis. The main portal vein is patent. No retroperitoneal lymphadenopathy. Normal caliber abdominal aorta. The bladder is unremarkable. Prior right hemicolectomy with ileocolonic anastomosis. There is focal narrowing within the distal ileum approximately 20 cm proximal to the ileocolonic anastomosis. This results in the transition point of a small bowel obstruction and is best seen on image 286. The bowel loops proximal to this transition point are dilated and fluid-filled measuring up to 3.6 cm in diameter. This is similar to the previous study. There is mild thickening involving the distal ileum from the transition point to the ileocolonic anastomosis measuring a total length of approximately 20 cm. This favors mild acute on chronic Crohn's disease. A few mildly enlarged mesenteric lymph nodes, unchanged. IMPRESSION: 1. Small bowel obstruction with a transition point located at the distal ileum as described above. The distal 20 cm of the ileum from the transition point to the ileocolonic anastomosis are slightly thickened. Therefore, these findings are consistent with acute on chronic Crohn's disease. 2. No abscess identified. 3. Prior right hemicolectomy with ileocolonic anastomosis. 4. Hepatic steatosis. (1) Acute Crohn's disease Digestive disease complication type: unspecified complication Qualified Code(s): K50.919 - Crohn's disease, unspecified, with unspecified complications
[2019-06-18] MEDS: methylPREDNISolone 40 MG in SYRINGE 0 ML IV SCH (01:54)
[2019-06-18] MEDS: SODIUM CHLORIDE 0.9% 1000ML 1,000 ML IV SCH ×2 (01:54→09:13)
[2019-06-18 06:31] LABS: Hematocrit (blood only) 42.4 % (42-52); Hemoglobin 14.2 g/dL (14.0-18.0); Immature Granulocytes # (auto) 0.01 K/uL (0.00-0.02); Immature Granulocytes % (auto) 0.1 %; Lymphocytes # (auto) 0.75 K/uL (1.2-3.4); Mean Corpuscular Hemoglobin 30.8 pg (25-34); Mean Corpuscular Hgb Conc 33.5 g/dL (32-36); Monocytes # (auto) 0.16 K/uL (0.11-0.59); Monocytes % (auto) 1.7 %; Neutrophils % (auto) 90.2 %; Platelet Count 236 K/uL (130-400); RDW Coefficient of Variation 13.5 % (11.5-14.5); Red Blood Count 4.61 M/uL (4.7-6.1); White Blood Count 9.42 K/uL (4.8-10.8)
[2019-06-18 07:23] LABS: Albumin Globulin Ratio 0.8 (0.9-2); Albumin Level 3.1 gm/dl (3.4-5.0); BUN Creatinine Ratio 10.9 (10-20); Bilirubin,Total 0.5 mg/dl (0.2-1); Calcium 8.3 mg/dl (8.5-10.1); Creatinine Clr Calc Pharmacy 91.3 ml/min; Est GFR (African American) 103.4; Est GFR (Non-African American) 89.2; Magnesium 2.1 mg/dl (1.8-2.4); Phosphorus 2.1 mg/dl (2.5-4.9); Potassium 3.7 mmol/L (3.5-5.1); Total Protein 7.1 gm/dl (6.4-8.2)
[2019-06-18] MEDS ORDERED: predniSONE 20 MG TAB PO SCH (09:00)
[2019-06-18] MEDS: FAMOTIDINE 20 MG in SYRINGE 3 ML IV SCH (09:40)
--- NOTE | 2019-06-18 12:49 | Surgery Progress Note ---
Date of Service June 18, 2019 Assessment & Plan (1) Small bowel obstruction: 49 year-old male with history of Crohn's disease and right hemicolectomy with ileocolonic anastomsis and abdominal surgeries x 4 with history of strictureplasty who presented to ED with abdominal pain, nausea, and vomiting after ingesting a larger meal. CT scan showing SBO with transition zone at terminal ileum and wall thickening of 20 cm of colon proximally consistent with acute on chronic crohn's disease. Abdomen is soft, positive return of bowel function, no leukocytosis. -06/18/2019 vitals stable, afebrile, no leukocytosis no abdominal pain, n/v, tolerating low fiber diet Plan: No acute surgical intervention required Okay from surgical standpoint for discharge Should follow with GI for further Crohn's treatment Advised patient to eat smaller frequent meals, avoid dense foods, and chew food very slowly and carefully. Our services signing off, please call with questions or concerns (2) Acute Crohn's disease: Dr. Turner has seen patient agrees with above Subjective feeling well today no abdominal pain, nausea or vomiting tolerated low fiber diet for breakfast no bowel movement today but small one last evening Physical Exam Constitutional: WD/WN, vitals as above no acute distress Respiratory: normal respiratory effort; no respiratory distress Skin: no rashes, warm and dry Psychiatric: A+Ox3, euthymic affect Results & Data Vital Signs (Past 12 Hours) Vital Signs Temp Pulse Resp BP Pulse Ox 06/18/19 10:49 36.4 C L 71 16 133/73 71 L 06/18/19 07:24 36.6 C 62 16 120/73 97 Laboratory Results 06/18/19 06/18/19 Range/Units 06:00 06:00 WBC 9.42 (4.8-10.8) K/uL RBC 4.61 L (4.7-6.1) M/uL Hgb 14.2 (14.0-18.0) g/dL Hct 42.4 (42-52) % MCV 92.0 (80-100) fL MCH 30.8 (25-34) pg MCHC 33.5 (32-36) g/dL RDW Std Deviation 45.0 (36.4-46.3) fL RDW Coeff of Angelina 13.5 (11.5-14.5) % Plt Count 236 (130-400) K/uL MPV 10.0 (7.4-10.4) fL Immature Gran % (Auto) 0.1 % Neut % (Auto) 90.2 % Lymph % (Auto) 8.0 % [place] % (Auto) 1.7 % Eos % (Auto) 0.0 % Baso % (Auto) 0.0 % Immature Gran # (Auto) 0.01 (0.00-0.02) K/uL Neut # (Auto) 8.50 H (1.4-6.5) K/uL Lymph # (Auto) 0.75 L (1.2-3.4) K/uL [place] # (Auto) 0.16 (0.11-0.59) K/uL Eos # (Auto) 0.00 (0-0.5) K/uL Baso # (Auto) 0.00 (0-0.2) K/uL Sodium 142 (136-145) mmol/L Potassium 3.7 (3.5-5.1) mmol/L Chloride 110 H (98-107) mmol/L Carbon Dioxide 27 (21-32) mmol/L Anion Gap 4.0 (3-11) BUN 11 (7-18) mg/dl Creatinine 1.00 (0.6-1.4) mg/dl Est Cr Clr Drug Dosing 91.3 ml/min Est GFR ( Amer) 103.4 Est GFR (Non-Af Amer) 89.2 BUN/Creatinine Ratio 10.9 (10-20) Glucose 137 H (70-99) mg/dl Calcium 8.3 L (8.5-10.1) mg/dl Phosphorus 2.1 L (2.5-4.9) mg/dl Magnesium 2.1 (1.8-2.4) mg/dl Total Bilirubin 0.5 (0.2-1) mg/dl AST 22 (15-37) U/L ALT 53 (12-78) U/L Alkaline Phosphatase 77 (45-117) U/L Total Protein 7.1 (6.4-8.2) gm/dl Albumin 3.1 L (3.4-5.0) gm/dl Globulin 4.0 (2.5-4.0) gm/dl Albumin/Globulin Ratio 0.8 L (0.9-2) (1) Acute Crohn's disease Digestive disease complication type: unspecified complication Qualified Code(s): K50.919 - Crohn's disease, unspecified, with unspecified complications
--- NOTE | 2019-06-18 14:55 | Discharge Summary ---
Date of Service June 18, 2019 Admission HPI Per Admitting Provider Mr. James Sewell is a 49 y/o male with past medical history of Crohn's Disease w/ileocecal resection and resection for adhesions, abdominal surgeries x4, SBO, GI bleed who presented to [facility] with Abdominal Pain. He notes onset of abdominal pain at 6pm this evening that worsened. He notes pain felt like typical crohn's but location was central and typically his crohn's is located to left sided for pain. He notes feeling nauseous and had one episode of vomiting on way to ED. He notes having a normal BM prior to onset of pain without black/bloody stool appearance. He characterizes pain as stabbing. He notes nausea and pain are improved s/p Dilaudid 1mg IV and Zofran 4mg IV in ED. He does not currently have a NG tube in place and notes that he is willing to have NG tube placed if his nausea worsens or becomes intractable with anti-emetics. He has not passed gas since onset of pain. He notes feeling hot and cold earlier today without measured fever. He ate a piece of pizza today and some pretezels with cheese but states has not had much to eat. He states he previously followed with Dr. Leonila CARBAJAL but notes he might have been discharged from practice. He states "I wasn't a very good patient" noting that he missed scheduled appointments because of work and that last appointment he put date in calender wrong and showed up a day early. He noted that he then had to go out of town and missed appointment. He notes 4 prior surgeries with 3 at [facility] and last at [facility] in 2018. In ED, he received Dilaudid 1mg IV x1, Zofran 4mg IV x1, 1L NSS Bolus, he also was noted to have a dose of steroids in the ED. His CT Abdomen showed a SBO with focal narrowing within the distal ileum approximately 20 cm proximal to the ileocolonic anastomosis, resulting in the transition point of a small bowel obstruction. The bowel loops proximal to this transition point are dilated and fluid-filled measuring up to 3.6 cm in diameter. Similar to the previous study. There is mild thickening involving the distal ileum from the transition point to the ileocolonic anastomosis measuring a total length of approximately 20 cm. This favors mild acute on chronic Crohn's disease. A few mildly enlarged mesenteric lymph nodes, unchanged. Principal Diagnosis Small bowel obstruction Discharge Exam Constitutional WD/WN, vitals as above Eyes PERRL, conjunctivae normal, anicteric sclerae ENMT external ear and nose normal, oropharynx normal Neck trachea midline, no thyromegaly Respiratory normal respiratory effort, lungs clear to auscultation Cardiovascular RRR, no murmur, no edema Gastrointestinal (Abdomen) Inspection/Auscultation: abdomen normal to inspection, + abdominal surgical scar (Midline) and + hypoactive bowel sounds; abdomen not distended Percussion/Palpation: abdomen soft and normal to percussion; abdomen nontender, no guarding and abdomen not rigid Musculoskeletal no cyanosis or clubbing, extremities motor strength 5/5 Skin no rashes, warm and dry Neurologic patellar DTR's 2+ bilat, sensation intact and PERRL, EOMI, accommodation nl, no face palsy, no dysarthria Psychiatric A+Ox3, euthymic affect Lymphatic no cervical or axillary lymphadenopathy Discharge Data Allergies Allergy/AdvReac Type Severity Reaction Status Date / Time morphine AdvReac Intermediate N/V Verified 06/16/19 20:31 Consultations 06/16/19 22:29 ED Decision to Admit Stat 06/17/19 01:14 Consult Gastroenterology Routine 06/17/19 14:44 Consult General Surgery Routine Ordered Studies 06/16/19 20:45 CT abd pelvis IV con only Stat Hospital Course (1) Small bowel obstruction: most likely due to adhesions given prior surgeries symptoms resolved, moving bowels, tolerating a low fiber diet discussed with general surgery they recommend low fiber diet, stay well hydrated, eat small meals, chew thoroughly can follow up with PCP in one week (2) Abdominal pain: resolved with moving bowels (3) Acute Crohn's disease: in remission according to patient and family he has not been on any maintenance medication since 2016 h/o several sticturoplasty and bowel resections initially treated with Solu Medrol but no true evidence of inflammation on CT will stop steroids, discussed with Dr. Keen he can follow up with Dr. Keen in several weeks (4) Vomiting: resolved Total Time Total Time Spent Total Time Spent (In Minutes): 31 Total Time Includes: Examination of the Patient, Discharge Planning, Medication Reconciliation and Communication With Other Providers (general surgery, DR. Keen) Discharge Plan Discharge Items Patient Disposition: Home - Self-Care Reason For Visit: SBO, ACUTE CROHN'S Discharge Diagnosis: Small bowel obstruction, resolved Condition on Discharge: Good Goals: stay well hydrated, stay active eat small meals, chew well Activity: Resume your previous activity Non-emergency contact: Primary Care Provider Call non-emergency contact if: you have any medication questions, your symptoms worsen, your pain is not controlled and you have a fever Follow-up/Referrals: Curtis Keen [Physician] - 08/21/19 10:20 am (Please, follow up at [facility] with Dr. Keen on MondayAugust 20 at 10:20 am. *The office is located at [address] [place] [address], next to [facility]. If you need to change this appointment, call the office at [phone].) Jeannie Hackett CRNP [Primary Care Provider] - 06/27/19 10:30 am (Please, follow up with Jeannie Hackett on June 27 at 10:30 am. *If you need to change this appointment, call the office at [phone].) Diet: Low Fiber Addtl Attending Provider Instructions: Medications: no changes Small bowel obstruction, resolved likely mechanical, could be due to an adhesion from prior surgeries flor is to stay well hydrated, stay active recommend low fiber diet, eat small meals, chew food thoroughly no evidence of flare of Crohn's disease, Dr. Keen does NOT recommend steroids FOLLOW UP - Pearl Hackett in one week - Dr. Keen in several weeks Pending Studies at Discharge: No Stand-Alone Forms: Call Back Authorization, [facility] [email or web address], Smoking Cessation Medications and DC Order Prescriptions: Continued Excedrin Migraine 250-250-65 mg Tablet 2 tab PO TID PRN (Reason: Migraine Headache) RF: 0 Discharge Orders: Discharge Order (Routine); Ordered 06/18/19 Ordered By: Amari Panda/Other Patient Handouts: Obstruction Sm Bowel, Crohn Disease Lifestyle Manage Admission Data Admit Date/Time: 06/17/19 00:21 Attending Provider: Amari Castro Admit Provider: Donaldo Urbano Primary Care Provider: Jeannie Hackett Other Providers: Sae Samano ; Curtis Keen ; Mike Virgen Other Interventions: Discharge Summary Assessment (RN) Last Done: 06/18/19 15:31 Coding Level of Care Code D/C Day Management >30 mins Diagnoses Small bowel obstruction K56.609 Abdominal pain R10.9 Abdominal location: unspecified location Acute Crohn's disease K50.919 Digestive disease complication type: unspecified complication Vomiting R11.10 Nausea presence: unspecified Vomiting Intractability: non-intractable Vomiting type: unspecified
== END 2019-06-18 15:52 | disposition home or self-care (01) | DRG 387 ==
LOC: ED 19:55 → 2E 06-17 00:21 → SUATTDRO 06-17 00:21 → 2E 06-17 00:47 → 3W 06-17 11:26

== ENCOUNTER 2021-12-19 12:22 | Inpatient (IN) ==
[2021-12-19 12:54] LABS: Basophils # (auto) 0.03 K/uL (0-0.2); Basophils % (auto) 0.3 %; Eosinophils # (auto) 0.05 K/uL (0-0.50); Eosinophils % (auto) 0.5 %; Hematocrit (blood only) 43.9 % (40.1-51.0); Hemoglobin 14.8 g/dl (14.0-18.0); Immature Granulocytes # (auto) 0.02 K/uL (0.00-0.02); Immature Granulocytes % (auto) 0.2 %; Lymphocytes # (auto) 0.81 K/uL (1.2-3.4); Lymphocytes % (auto) 8.2 %; Mean Corpuscular Hgb Conc 33.7 g/dL (32.0-36.0); Mean Corpuscular Volume 94.8 fL (80.0-100.0); Mean Platelet Volume 9.8 fL (9.4-12.4); Monocytes # (auto) 0.47 K/uL (0.24-0.82); Monocytes % (auto) 4.8 %; Neutrophils # (auto) 8.51 K/uL (1.4-6.5); Platelet Count 267 K/uL (130-400); RDW Coefficient of Variation 12.6 % (11.5-14.5); RDW Standard Deviation 43.8 fL (36.4-46.3); Red Blood Count 4.63 M/uL (4.63-6.08); White Blood Count 9.89 K/ul (4.8-10.8)
[2021-12-19 13:12] LABS: Alanine Aminotransferase 31 U/L (7-52); Albumin Level 3.8 gm/dl (3.4-5.0); Alkaline Phosphatase 95 U/L (34-104); Anion Gap 7 (3-11); Aspartate Aminotransferase 30 U/L (13-39); BUN Creatinine Ratio 7.6 (10-20); Bilirubin,Total 0.4 mg/dl (0.2-1.0); Blood Urea Nitrogen 9 mg/dl (6-23); Calcium 9.5 mg/dl (8.5-10.1); Carbon Dioxide 28 mmol/L (21-32); Chloride 104 mmol/L (98-107); Est GFR (African American) 83.5 ml/min; Globulin 3.7 gm/dl (2.5-4.0); Glucose 108 mg/dl (70-99(Fasting)); Lipase 16 U/L (11-82); Potassium 4.2 mmol/L (3.5-5.1); Sodium 139 mmol/L (136-145); Total Protein 7.5 gm/dl (6.0-8.3)
[2021-12-19] MEDS ORDERED: MoRPHine SULFATE 4 MG/ML 1 ML CARP\\VIAL IV STA ×2 (13:32→14:54)
[2021-12-19] MEDS ORDERED: ONDANSETRON INJ 2 MG/ML 2 ML VIAL IV STA ×2 (13:32→14:54)
[2021-12-19] MEDS ORDERED: SODIUM CHLORIDE 0.9% 1000ML 1,000 ML IV ONE ×2 (13:32→14:54)
--- NOTE | 2021-12-19 13:38 | Emergency Department Note ---
History of Present Illness General Chief complaint: Abdominal Pain Stated complaint: ABD PAIN, HX CROHNS Time Seen by Provider: 12/19/21 13:23 Source: patient Mode of arrival: ambulatory Limitations: no limitations History of Present Illness Maximum Pain Intensity: 8 ToThis patient is a 51-year-old male has a history of Crohn's disease with multiple abdominal surgeries in the past comes in with abdominal pain since 3 in the morning. He says it is constant but he has flareups. He had no fever. No blood or melena stool. No chest pain, shortness breath or pleurisy. He has had some nausea. he had 1 episode where he vomited several times without blood or melena. No blood or melena in stool. He is on no blood thinners no trauma or injury. No dysuria or hematuria Home Medications Medication Instructions Recorded Confirmed Type ashleticiadha root extract 300 mg 0 mg PO DAILY 08/28/20 12/19/21 History capsule aspirin-caffeine 500 mg-32.5 mg 1 tab PO DIRECTED PRN SINGH, PAIN, 12/19/21 12/19/21 History tablet (Dwayne Back and Body) ACHES multivitamin 1 tab PO DAILY 12/19/21 12/19/21 History Allergies Allergy/AdvReac Type Severity Reaction Status Date / Time No Known Allergies Allergy Verified 12/19/21 16:03 Past Med/Surg History Medical History Crohns disease Exacerbation of Crohn's disease with intestinal obstruction GI bleed SBO (small bowel obstruction) (03/04/14) Surgical History History of bowel resection Family History Other No pertinent family history in first degree relatives Social History Smoking Status: Never smoker Hx Alcohol Use: No Hx Substance Use: No Preferred Language: Mongolian Communication Ability: Effective Pan Helper Required: No Beliefs That Will Affect Care: None Current Living Situation: Spouse Current Living Situation Comment: lives with Feels Safe at Home: Yes Assistive Devices: None Immunizations: Past medical historyhe has had a 4-5 bowel surgeries and his tells me his appendix and gallbladder have been removed. No diabetes or cardiac history Social historyhe does not smoke. He drinks very minimally. Review of Systems A total of 10 systems reviewed and were otherwise negative Physical Exam Vital Signs Vital Signs - 24 hr 12/19/21 12:30 12/19/21 13:54 12/19/21 14:05 Temperature 37.1 C Temperature Source Temporal Artery Scan Pulse Rate 75 85 Pulse Rate from SpO2 Sensor 84 92 H Respiratory Rate 20 15 Blood Pressure 115/82 Blood Pressure Mean 93 Pulse Oximetry 100 91 99 Oxygen Delivery Method Room Air Sepsis Recent Fever Within 48 Hours No Sepsis New/Unexplained Change in Mental Status N/A Sepsis Action Taken by Nursing No Action Required 12/19/21 14:06 12/19/21 14:06 12/19/21 14:30 Temperature Temperature Source Pulse Rate 88 84 Pulse Rate from SpO2 Sensor 89 85 Respiratory Rate 14 16 Blood Pressure 115/74 Blood Pressure Mean 87 Pulse Oximetry 99 96 Oxygen Delivery Method Sepsis Recent Fever Within 48 Hours Sepsis New/Unexplained Change in Mental Status Sepsis Action Taken by Nursing General: Well developed well nourished middle-age male who appears uncomfortable secondary to pain but in no acute respiratory distress, breathing comfortably on room air. Normal speech HEENT: Normal cephalic atraumatic. Pupils are equal round and reactive to light. Extraocular movements are intact. Oropharynx is pink with moist mucous membranes. No swelling of the mouth lips or tongue. Neck: Supple with a midline trachea. No meningeal signs or stiffness, no JVD or bruits. No Stridor. Chest: Clear to auscultation bilaterally. No wheezes or rhonchi. No increased work of breathing. Heart: Regular rate and rhythm without murmurs or gallops. Abdomen: Soft mildly diffusely tender but nondistended without rebound guarding or rigidity. Extremities: No cyanosis clubbing or edema. No calf tenderness or assymetry Spine/Back. Non tender to palpation. No CVA tenderness Skin: Good turgor without rashes. Neurologic exam: Cranial nerves two through 12 are intact. Motor and sensation are intact and symmetrical throughout. Course Administered Medications Discontinued Medications Sodium Chloride (Nss 1000ml) 1,000 mls @ 999 mls/hr IV .Q1H1M ONE Stop: 12/19/21 14:32 Last Infusion: 12/19/21 14:43 Dose: 0 mls/hr Documented By: Admin: 12/19/21 13:45 Dose: 999 mls/hr Documented By: AM Sodium Chloride (Nss 1000ml) 1,000 mls @ 999 mls/hr IV .Q1H1M ONE Stop: 12/19/21 15:54 Last Infusion: 12/19/21 16:40 Dose: 0 mls/hr Documented By: Admin: 12/19/21 15:20 Dose: 999 mls/hr Documented By: [id number] Ioversol (Optiray 320 100ml) 94 ml IV ONCE ONE Stop: 12/19/21 14:08 Last Admin: 12/19/21 14:07 Dose: 94 ml Documented By: [email or web address] Morphine Sulfate (Morphine Sulfate 4 Mg/Ml 1 Ml Carp\Vial) 4 mg IV NOW STA Stop: 12/19/21 13:33 Last Admin: 12/19/21 13:45 Dose: 4 mg Documented By: AM Morphine Sulfate (Morphine Sulfate 4 Mg/Ml 1 Ml Carp\Vial) 4 mg IV NOW STA Stop: 12/19/21 14:55 Last Admin: 12/19/21 15:15 Dose: 4 mg Documented By: [id number] Ondansetron HCl (Ondansetron Inj 2 Mg/Ml 2 Ml Vial) 4 mg IV NOW STA Stop: 12/19/21 13:33 Last Admin: 12/19/21 13:45 Dose: 4 mg Documented By: AM Ondansetron HCl (Ondansetron Inj 2 Mg/Ml 2 Ml Vial) 4 mg IV NOW STA Stop: 12/19/21 14:55 Last Admin: 12/19/21 15:15 Dose: 4 mg Documented By: [id number] Medical Decision Making Differential Diagnosis Crohn's exacerbation, bowel obstruction, colitis, infection, electrolyte or metabolic abnormality, COVID Medical Records Attestation: I reviewed the patient's medical records. Home Medications Current Medication List: was personally reviewed by me Laboratory Data Attestation: I reviewed the patient's lab results. Result diagrams: 12/19/21 12:42 12/19/21 12:42 Lab Results 12/19/21 12/19/21 12/19/21 Range/Units 12:42 12:42 13:54 WBC 9.89 (4.8-10.8) K/ul RBC 4.63 (4.63-6.08) M/uL Hgb 14.8 (14.0-18.0) g/dl Hct 43.9 (40.1-51.0) % MCV 94.8 (80.0-100.0) fL MCH 32.0 (25.0-34.0) pg MCHC 33.7 (32.0-36.0) g/dL RDW Std Deviation 43.8 (36.4-46.3) fL RDW Coeff of Angelina 12.6 (11.5-14.5) % Plt Count 267 (130-400) K/uL MPV 9.8 (9.4-12.4) fL Immature Gran % (Auto) 0.2 % Neut % (Auto) 86.0 % Lymph % (Auto) 8.2 % [place] % (Auto) 4.8 % Eos % (Auto) 0.5 % Baso % (Auto) 0.3 % Neut # (Auto) 8.51 H (1.4-6.5) K/uL Lymph # (Auto) 0.81 L (1.2-3.4) K/uL [place] # (Auto) 0.47 (0.24-0.82) K/uL Eos # (Auto) 0.05 (0-0.50) K/uL Baso # (Auto) 0.03 (0-0.2) K/uL Immature Gran # (Auto) 0.02 (0.00-0.02) K/uL Sodium 139 (136-145) mmol/L Potassium 4.2 (3.5-5.1) mmol/L Chloride 104 (98-107) mmol/L Carbon Dioxide 28 (21-32) mmol/L Anion Gap 7 (3-11) BUN 9 (6-23) mg/dl Creatinine 1.18 (0.6-1.4) mg/dl Est Cr Clr Drug Dosing Not Reportable Est GFR ( Amer) 83.5 ml/min Est GFR (Non-Af Amer) 72.0 ml/min BUN/Creatinine Ratio 7.6 L (10-20) Glucose 108 H (70-99(Fasting)) mg/dl Calcium 9.5 (8.5-10.1) mg/dl Total Bilirubin 0.4 (0.2-1.0) mg/dl AST 30 (13-39) U/L ALT 31 (7-52) U/L Alkaline Phosphatase 95 (34-104) U/L Total Protein 7.5 (6.0-8.3) gm/dl Albumin 3.8 (3.4-5.0) gm/dl Globulin 3.7 (2.5-4.0) gm/dl Albumin/Globulin Ratio 1.0 (0.9-2) Lipase 16 (11-82) U/L SARS-CoV-2, RNA, NAAT NEGATIVE (NEGATIVE) Imaging Data Attestation: I personally reviewed and interpreted this imaging study as follows: My Impression: Chest x-rayno acute infiltrate or failure, pneumothorax. The NG tube is seen in the stomach. Radiologist's Impression: Abdomen/Pelvis CT 12/19/21 13:[address] WITH IV CONTRAST CT DOSE: 321.68 mGy.cm HISTORY: Acute mid abdominal pain in a patient with history of Crohn's disease Abdominal pain, history of Crohn's disease TECHNIQUE: Multiaxial CT images of the abdomen and pelvis were performed following the IV administration of 94 cc of Optiray, A dose lowering technique was utilized adhering to the principles of ALARA. COMPARISON STUDY: CT abdomen and pelvis 08/28/2020 FINDINGS: Clear lung bases. Mild right hemidiaphragmatic elevation. There is no pneumatosis or pneumoperitoneum. Unremarkable spleen, pancreas and adrenal glands. Gallbladder wall thickening without gallbladder distention. Unremarkable liver. Patency of the hepatic and portal veins. Kidneys. No hydronephrosis. Pro stamegaly. Mild urinary bladder wall thickening with partial distention. Unremarkable abdominal aorta and IVC. No lymphadenopathy. Mild nonspecific distal esophageal wall thickening. Colonic diverticulum. High- grade small bowel obstruction with transition point involving a loop of small bowel within the central lower abdomen on image 277. There is wall thickening of the involved small bowel loop of a probable stricture or adhesion. Upstream air, fluid and stool-filled loops of jejunum. Postoperative changes consistent with prior right hemicolectomy with ileocolic anastomosis. There is wall thickening with increased enhancement of the terminal ileum on image 214 with additional loops of small bowel wall thickening in the ileum. Additional mild wall thickening is noted within the tortuous sigmoid colon within the abdominal right lower quadrant with wall thickening and partial distention involving the transverse and descending colon. Unremarkable soft tissues. No acute fracture. IMPRESSION: 1. High-grade small bowel obstruction with transition point within the central lower abdomen. The point of obstruction is likely secondary to a small bowel adhesion versus stricture related to the patient's inflammatory bowel disease. Surgical consultation is needed. 2. Postoperative changes of partial right hemicolectomy with ileocolic anastomosis. 3. Wall thickening of the terminal ileum without significant inflammatory stranding is likely related to chronic inflammatory bowel disease. Additional wall thickening within portions of the large bowel may be secondary to partial distention versus additional sites of disease. ACT 112: Negative or not required by law. The above report was generated using voice recognition software. It may contain grammatical, syntax or spelling errors. Electronically signed by: Armando Akers M.D. 12/19/2021 2:28 PM [facility] Narrative This patient comes in as described above. He has Crohn's disease and has a acute exacerbation of this. He appears uncomfortable IV access was established and he was hydrated 1 L IV normal saline bolus and he was given morphine 4 mg IV and Zofran 4 mg IV. He has no fever or white count to suggest infection/sepsis. No significant anemia. He has no significant electrolyte or metabolic abnormalities. Given his history of multiple surgery as I was worried about bowel obstruction/adhesions I did order a CT of his abdomen as well. CT does show a high-grade small bowel obstruction likely from adhesion. He was given further IV fluids bolus as well as additional IV morphine and Zofran. I discussed the case with Dr. Hanks who is on-call for surgery. he recommends NG tube and medicine to admit the patient. The patient was initially reluctant to have the NG tube is is felt uncomfortable in the past but after I talked to him at length he agreed. The NG tube was placed by the nursing staff and when I rechecked the patient he looks significantly improved and feels much better. I have [facility] for admission and further treatment and evaluation. The patient will be admitted for these measures. Continuous cardiac monitoring: Orders was placed in EMR for continuous cardiac monitoring. Upon my interpretation. the patient was noted to be in normal sinus rhythm with a rate of 70 Impression & Plan SBO (small bowel obstruction), Abdominal pain, Crohns disease, Vomiting, Lab test negative for COVID-19 virus Discharge Plan Visit Data Chief Complaint: Abdominal Pain Stated Complaint: ABD PAIN, HX CROHNS ED Provider: Blanco Abreu Discharge Problem: SBO (small bowel obstruction), Abdominal pain, Crohns disease, Vomiting, Lab test negative for COVID-19 virus Patient Disposition: Admitted As Inpatient Discharge Instructions Interventions: ED Discharge Assessment Last Done: 12/19/21 18:00
[2021-12-19] MEDS ORDERED: OPTIRAY 320 100ml IV ONE (14:07)
--- NOTE | 2021-12-19 14:30 | CT Scan Report ---
ABDOMEN AND PELVIS CT WITH IV CONTRAST CT DOSE: 321.68 mGy.cm HISTORY: Acute mid abdominal pain in a patient with history of Crohn's disease Abdominal pain, histo ry of Crohn's disease TECHNIQUE: Multiaxial CT images of the abdomen and pelvis were performed following the IV administrat ion of 94 cc of Optiray, A dose lowering technique was utilized adhering to the principles of ALARA. COMPARISON STUDY: CT abdomen and pelvis 08/28/2020 FINDINGS: Clear lung bases. Mild right hemidiaphragmatic elevation. There is no pneumatosis or pneumoperitoneum . Unremarkable spleen, pancreas and adrenal glands. Gallbladder wall thickening without gallbladder d istention. Unremarkable liver. Patency of the hepatic and portal veins. Kidneys. No hydronephrosis. P rostamegaly. Mild urinary bladder wall thickening with partial distention. Unremarkable abdominal aor ta and IVC. No lymphadenopathy. Mild nonspecific distal esophageal wall thickening. Colonic diverticulum. High-grade small bowel obst ruction with transition point involving a loop of small bowel within the central lower abdomen on eloy ge 277. There is wall thickening of the involved small bowel loop of a probable stricture or adhesion . Upstream air, fluid and stool-filled loops of jejunum. Postoperative changes consistent with prior right hemicolectomy with ileocolic anastomosis. There is wall thickening with increased enhancement o f the terminal ileum on image 214 with additional loops of small bowel wall thickening in the ileum. Additional mild wall thickening is noted within the tortuous sigmoid colon within the abdominal right lower quadrant with wall thickening and partial distention involving the transverse and descending c olon. Unremarkable soft tissues. No acute fracture. IMPRESSION: 1. High-grade small bowel obstruction with transition point within the central lower abdomen. The poi nt of obstruction is likely secondary to a small bowel adhesion versus stricture related to the patie nt's inflammatory bowel disease. Surgical consultation is needed. 2. Postoperative changes of partial right hemicolectomy with ileocolic anastomosis. 3. Wall thickening of the terminal ileum without significant inflammatory stranding is likely related to chronic inflammatory bowel disease. Additional wall thickening within portions of the large bowel may be secondary to partial distention versus additional sites of disease. ACT 112: Negative or not required by law. The above report was generated using voice recognition software. It may contain grammatical, syntax o r spelling errors. Electronically signed by: Armando Akers M.D. 12/19/2021 2:28 PM
--- NOTE | 2021-12-19 16:26 | History & Physical Report ---
Date of Service December 19, 2021 Assessment & Plan (1) SBO (small bowel obstruction): Plan: SBO 2/[address] A/P:1. High-grade small bowel obstruction with transition point within the central lower abdomen. The point of obstruction is likely secondary to a small bowel adhesion versus stricture related to the patient's inflammatory bowel disease. Surgical consultation is needed. 2. Postoperative changes of partial right hemicolectomy with ileocolic anastomosis.3. Wall thickening of the terminal ileum without significant inflammatory stranding is likely related to chronic inflammatory bowel disease. Additional wall thickening within portions of the large bowel may be secondary to partial distention versus additional sites of disease. Surgery consulted. Recommend n.p.o., fluids, NGT, follow medically at this time. Pain control with morphine scaled morphine analgesia every 4 hours Zofran 4 mg every 4 hours as needed NGT to LIS On admission no leukocytosis, hemoglobin normal, sodium/potassium normal, creatinine 1.18 (normal baseline around 11 0.2), no transaminitis, and COVID is negative Crohn's In remission previously per patient No maintenance medication since 2016 Has had stricturoplasty and several bowel resections (4 surgeries total per pt) Previously followed with Dr. Keen. Reports he talked about maintenance medications before he retired, and did not feel maintenance meds were required as he was doing well and had been on many drugs previously. Recommended low fiber diet and deferred medications otherwise. GI consulted to reestablish follow-up and reassess for maintenance medications. DVT prophylaxis: Lovenox Diet: N.p.o. CODE STATUS: Full code, surrogate decision maker would be Dispo: Medical/surgical (2) Crohns disease: History of Present Illness Primary Care Provider: BRANDEN Sanz James is a 51-year-old male with a past medical history of Crohn's disease not on daily treatment with a history of multiple prior abdominal surgery who came in with 1 day of abdominal pain and 1 episode of nonbloody nonbilious emesis. CT shows high-grade SBO likely due to adhesions. Case was discussed with surgery by ER provider, was recommended that patient be admitted to medical service, n.p.o., NGT, and follow clinically at this time. Karina to get water early this AM, epigastric sharp/twinge like pain similar to prior flares. Did move his bowels this morning, small, nonbloody/no melena. [place] poor, layed in bed. Had progressive nausea through the morning up to 10am with one episode of nonbloody/nonbilious emesis. From past hx knew it could be a blockage or adhesions so came to the ER. No fever, chills, or sweats but was cold today. No chest pain, chest pressure, or shortness of breath. 2-3/10 now after pain medications. Sx for crohns last at [facility] w/ Dr. Aguilar ~6 years ago, [facility]. Medical History: Reviewed Medications: Reviewed Surgical History: Reviewed Allergies: Reviewed Social History: Code Status: Full Code. Surrogate DM woyoselin guillene he Allergies Allergy/AdvReac Type Severity Reaction Status Date / Time No Known Allergies Allergy Verified 12/19/21 16:03 Home Medications Medication Instructions Recorded Confirmed Type ashwagandha root extract 300 mg 0 mg PO DAILY 08/28/20 12/19/21 History capsule aspirin-caffeine 500 mg-32.5 mg 1 tab PO DIRECTED PRN SINGH, PAIN, 12/19/21 12/19/21 History tablet (Dwayne Back and Body) ACHES multivitamin 1 tab PO DAILY 12/19/21 12/19/21 History Past Med/Surg History Medical History Crohns disease Exacerbation of Crohn's disease with intestinal obstruction GI bleed SBO (small bowel obstruction) (03/04/14) Surgical History History of bowel resection Family History Other No pertinent family history in first degree relatives Social History Smoking Status: Never smoker Hx Alcohol Use: No Hx Substance Use: No Preferred Language: Maldivian Communication Ability: Effective Security Manager Required: No Beliefs That Will Affect Care: None Current Living Situation: Spouse Current Living Situation Comment: lives with Feels Safe at Home: Yes Assistive Devices: None Review of Systems Review of Systems: All systems reviewed & are unremarkable except as noted in Subjective Physical Exam Physical Exam: General: A&Ox3. NAD. Cooperative. HEENT: Atraumatic, normocephalic. Pulm: CTAB A&P. -wheezes, -rales, -rhonchi. Symmetrical chest rise. No increased work of breathing. No respiratory distress. Cardiac: RRR, -mrg. Radial pulses intact and symmetrical. Abdominal: Diffusely mildly tender, softly distended, BS absent. No rebound Ext: Warm, dry. [employer] strength, hip flexion, ankle dorsi/plantarflexion intact. no edema. Results & Data Results & Data ([facility]) Vital Signs (Past 12 Hours) Vital Signs Temp Pulse Resp BP Pulse Ox O2 Del Method 12/19/21 14:30 84 16 96 12/19/21 14:06 115/74 12/19/21 14:06 88 14 99 12/19/21 14:05 99 12/19/21 13:54 85 15 91 12/19/21 12:30 37.1 C 75 20 115/82 100 Room Air PG Care Time/CCT Total # of Minutes Spent Total Time Spent with Patient: Total time spent is greater than 50% in coordination of care (as documented) at patient's floor/unit and/or counseling patient: Coding Level of Care Code 31917 Initial Inpt Care Lvl 2 Diagnoses SBO (small bowel obstruction) K56.609 Crohns disease K50.90
--- NOTE | 2021-12-19 17:35 | XRay Report ---
XR chest 1V portable HISTORY: 51 years-old Male NG placement confirmation status post placement of an enteric tube COMPARISON: Chest radiograph 08/28/2020 TECHNIQUE: AP view of the chest FINDINGS: Cardiomediastinal and hilar silhouettes are within normal limits. Mild right hemidiaphragmatic elevat ion. No pneumothorax, pleural effusion, airspace consolidation or overt pulmonary edema. Bones appear grossly intact. An enteric tube is present with distal tip projected over the gastric body. IMPRESSION: Distal tip of enteric tube projects over the stomach. ACT 112: Negative or not required by law. The above report was generated using voice recognition software. It may contain grammatical, syntax o r spelling errors. Electronically signed by: Armando Akers M.D. 12/19/2021 5:33 PM
[2021-12-19] MEDS ORDERED: ACETAMINOPHEN 325 MG TAB PO PRN (18:14)
[2021-12-19] MEDS ORDERED: MoRPHine SULFATE 2 MG/ML CARP IV PRN (18:14)
[2021-12-19] MEDS ORDERED: ONDANSETRON INJ 2 MG/ML 2 ML VIAL IV PRN (18:14)
[2021-12-19] MEDS ORDERED: MoRPHine SULFATE 4 MG/ML 1 ML CARP\\VIAL IV PRN (18:14)
[2021-12-19] MEDS: LACTATED RINGER'S 1,000 ML IV SCH (18:43)
[2021-12-19] MEDS: ENOXAPARIN INJ 40 MG/0.4 ML SYR SQ SCH (21:01)
[2021-12-20] MEDS: LACTATED RINGER'S 1,000 ML IV SCH ×3 (02:18→16:56)
[2021-12-20] MEDS: ACETAMINOPHEN 1000 MG/100 ML IV IV PRN ×2 (06:26→14:40)
[2021-12-20 07:18] LABS: Basophils # (auto) 0.02 K/uL (0-0.2); Basophils % (auto) 0.3 %; Eosinophils # (auto) 0.03 K/uL (0-0.50); Eosinophils % (auto) 0.4 %; Hematocrit (blood only) 38.6 % (40.1-51.0); Hemoglobin 12.8 g/dl (14.0-18.0); Immature Granulocytes # (auto) 0.02 K/uL (0.00-0.02); Immature Granulocytes % (auto) 0.3 %; Lymphocytes % (auto) 9.3 %; Mean Corpuscular Hemoglobin 31.4 pg (25.0-34.0); Mean Corpuscular Hgb Conc 33.2 g/dL (32.0-36.0); Mean Corpuscular Volume 94.8 fL (80.0-100.0); Mean Platelet Volume 9.9 fL (9.4-12.4); Monocytes # (auto) 0.46 K/uL (0.24-0.82); Monocytes % (auto) 6.1 %; Neutrophils # (auto) 6.33 K/uL (1.4-6.5); Neutrophils % (auto) 83.6 %; Platelet Count 221 K/uL (130-400); RDW Coefficient of Variation 12.7 % (11.5-14.5); RDW Standard Deviation 44.2 fL (36.4-46.3); Red Blood Count 4.07 M/uL (4.63-6.08); White Blood Count 7.56 K/ul (4.8-10.8)
[2021-12-20 07:38] LABS: BUN Creatinine Ratio 8.9 (10-20); Calcium 8.1 mg/dl (8.5-10.1); Creatinine Clr Calc Pharmacy 85.6 ml/min; Est GFR (African American) 100.8 ml/min; Est GFR (Non-African American) 86.9 ml/min; Potassium 3.7 mmol/L (3.5-5.1)
--- NOTE | 2021-12-20 09:50 | Gastrointestinal Consultation ---
Date of Consultation December 20, 2021 Assessment & Plan (1) SBO (small bowel obstruction): (2) Crohns disease: Plan 51 year old male with history of Crohns initially diagnosed at age 21, history of bowel obstructions requiring surgery, who presented to the ED after one day of abdominal pain that he tells me felt similar to prior blockages that he has had. Pain was in his left side of his abdomen. Upon being seen in the ED he did have a CT showing high grade SBO likely due to adhesions. He was admitted and surgery had seen him and he had NGT placed. Since the NGT has been placed he admits that he has had resolution of his pain. He does feel like he is going to move his bowels again soon. bowel sounds appreciated on exam. he is feeling better since admission. - Discussed case with Dr. Gibbons who advised on plan. - continue with NGT. - Surgery is following. - Given that he has had history of 4 bowel resections in the past, he would benefit from treatment. We discussed treatments for Crohns but the patient tells me he would like to review any treatment prior to starting and he would also like to update a colonoscopy before making a decision on treatment. - can start IV solumedrol 20mg q 8 hours. will plan for prednisone 40mg daily with a 5 mg a week taper after discharge (8 weeks total). - can proceed with colonoscopy to further evaluate as an outpatient. Supervising Physician Co-Signing Physician Notes I personally evaluated the patient and agree with the findings as documented by Carlos Alberto Villanueva, CHLOÉ Exam: Constitutional: WD/WN, vitals as above General: EOM intact bilaterally Neck: normal visual inspection Respiratory: normal respiratory effort, lungs clear to auscultation Cardiovascular: RRR, no murmur, no edema Gastrointestinal: abdomennormal to inspection, nondistended, soft, nontender, no hepatosplenomegaly Musculoskeletal: no cyanosis, head normal to inspection Skin: no rashes, warm and dry Neurologic: moves all extremities Psychiatric: A and O x3, euthymic affect History of Present Illness Reason for Consultation: ?maintenance tx for Crohns, lost to f/u previous Requesting Physician: Dr. Brijesh Palafox Attending Physician: Brijesh Palafox MD History of Present Illness Patient is a 51 year old male with history of Crohns initially diagnosed at age 21, history of bowel obstructions requiring surgery, who presented to the ED after one day of abdominal pain that he tells me felt similar to prior blockages that he has had. Pain was in his left side of his abdomen. Upon being seen in the ED he did have a CT showing high grade SBO likely due to adhesions. He was admitted and surgery had seen him and he had NGT placed. Since the NGT has been placed he admits that he has had resolution of his pain. Last bowel movement was day of admission and he tells me this was "a normal stool". no bleeding. no melena. He tells me that he feels he is going to need to move his bowels again soon. He denies any nausea, vomiting, heartburn, dypshagia. He was initially diagnosed with Crohns at the age of 21 and was previously followed with Dr. Keen at [facility]. He has been off all treatment since 2016. He tells me that he stopped treatment after his last bowel resection due to blockage. In the past he had done Remicade and Humira which had "worked for a while". He tells me he has never taken any oral medications for treatment of crohns. He admits he is not necessarily interested in starting treatment until he could review any medications that he may be starting. He tells me he does have concerns with taking biologics. He tells me that his last colonoscopy was at least 6 years ago but he is not sure. Allergies Allergy/AdvReac Type Severity Reaction Status Date / Time No Known Allergies Allergy Verified 12/19/21 16:03 Home Medications Medication Instructions Recorded Confirmed Type luis carlos root extract 300 mg 0 mg PO DAILY 08/28/20 12/19/21 History capsule aspirin-caffeine 500 mg-32.5 mg 1 tab PO DIRECTED PRN SINGH, PAIN, 12/19/21 History tablet (Dwayne Back and Body) ACHES multivitamin 1 tab PO DAILY 12/19/21 12/19/21 History Patient History Medical History Crohns disease Exacerbation of Crohn's disease with intestinal obstruction GI bleed SBO (small bowel obstruction) (03/04/14) Surgical History History of bowel resection Family History Other No pertinent family history in first degree relatives Social History Smoking Status: Former smoker Smoking End Date: 2011; Hx Alcohol Use: Yes Alcohol type: beer Hx Substance Use: Yes Last Used Substance: Days (ago) Last Used Substance Other:: 5 Preferred Language: Tristanian Communication Ability: Effective Environmental Professional Required: No Beliefs That Will Affect Care: None Current Living Situation: Spouse Current Living Situation Comment: and single child Other Information That Helps Us Care for You: No Feels Safe at Home: Yes Safety Concerns: Feels Safe At This Time Assistive Devices: Glasses Review of Systems Review of Systems: All systems reviewed & are unremarkable except as noted in Subjective Physical Exam Constitutional: WD/WN, vitals as above Eyes: + anicteric sclerae and PERRL ENMT: external ear and nose normal, oropharynx normal (he has NGT in right nostril.) Respiratory: normal respiratory effort, lungs clear to auscultation Cardiovascular: RRR, no murmur, no edema Gastrointestinal (Abdomen): normal bowel sounds, soft, nontender, no hepatosplenomegaly Skin: no rashes, warm and dry Psychiatric: A+Ox3, euthymic affect Results & Data ([facility]) Vital Signs (Past 12 Hours) Vital Signs Temp Pulse Resp BP Pulse Ox O2 Del Method 12/20/21 07:56 36.5 C 69 16 123/79 95 12/19/21 23:23 36.8 C 70 18 134/82 96 Room Air PG Care Time/CCT Total # of Minutes Spent Total Time Spent with Patient: Total time spent is greater than 50% in coordination of care (as documented) at patient's floor/unit and/or counseling patient: Coding Level of Care Code 76710 Office/OBS Consult Lvl 4 Diagnoses SBO (small bowel obstruction) K56.609 Crohns disease K50.90
[2021-12-20] MEDS: methylPREDNISolone 20 MG in SYRINGE 0 ML IV SCH ×2 (14:40→21:48)
--- NOTE | 2021-12-20 15:06 | Hospitalist Progress Note ---
Date of Service December 20, 2021 Assessment & Plan (1) SBO (small bowel obstruction): Plan: SBO 2/[address] A/P:1. High-grade small bowel obstruction with transition point within the central lower abdomen. The point of obstruction is likely secondary to a small bowel adhesion versus stricture related to the patient's inflammatory bowel disease. Surgical consultation is needed. 2. Postoperative changes of partial right hemicolectomy with ileocolic anastomosis.3. Wall thickening of the terminal ileum without significant inflammatory stranding is likely related to chronic inflammatory bowel disease. Additional wall thickening within portions of the large bowel may be secondary to partial distention versus additional sites of disease. Neurosurgery consulted improved with NGT, which was entered [place] removed. Pain improving with one small BM but no flatus at this time. will defer replacement unless he clinically worsens. Remain n.p.o., follow for bowel movements Pain control with morphine scaled morphine analgesia every 4 hours Zofran 4 mg every 4 hours as needed On admission no leukocytosis, hemoglobin normal, sodium/potassium normal, creatinine 1.18 (normal baseline around 11 0.2), no transaminitis, and COVID is negative Electrolytes stable today Crohn's In remission previously per patient No maintenance medication since 2016 Has had stricturoplasty and several bowel resections (4 surgeries total per pt) Previously followed with Dr. Keen. Reports he talked about maintenance medications before he retired, and did not feel maintenance meds were required as he was doing well and had been on many drugs previously. Recommended low fiber diet and deferred medications otherwise. GI consulted to reestablish follow-up and reassess for maintenance medications. Seen by GI, recommended IV Solu-Medrol 20 mg every 8 hours with taper and eventual discharge to prednisone 40 mg with 5 mg/week taper after discharge. Follow-up colonoscopy as outpatient. Appreciate recommendations DVT prophylaxis: Lovenox Diet: N.p.o. CODE STATUS: Full code, surrogate decision maker would be Dispo: Medical/surgical (2) Crohns disease: Admission and Anticipated Discharge Date Admission Date: December 19, 2021 Subjective Seen at bedside. Accidentally pulled out NGT, is hoping this will not need to be replaced. Did have resolution of pain following NGT placement. Reports he has not had any flatus. Did have a very small bowel movement, but has not had gas around this and no bowel movement since. Abdomen continues to be slightly distended, but pain is improved compared to prior. No fever, chills, sweats, lightheadedness, dizziness, nausea, vomiting this morning. Review of Systems Review of Systems: All systems reviewed & are unremarkable except as noted in Subjective Physical Exam Physical Exam: General: A&Ox3. NAD. Cooperative. HEENT: Atraumatic, normocephalic. vision/Hearing grossly intact, NGT no longer present Pulm: CTAB A&P. -wheezes, -rales, -rhonchi. Symmetrical chest rise. No increased work of breathing. No respiratory distress. Cardiac: RRR, -mrg. Radial pulses intact and symmetrical. Abdominal: Diffusely mildly tender, softly distended, BS absent. No rebound Ext: Warm, dry. Pearl Maker strength, hip flexion, ankle dorsi/plantarflexion intact. no edema. Results & Data Results & Data ([facility]) Vital Signs (Past 12 Hours) Vital Signs Temp Pulse Resp BP Pulse Ox 12/20/21 07:56 36.5 C 69 16 123/79 95 PG Care Time/CCT Total # of Minutes Spent Total Time Spent with Patient: Total time spent is greater than 50% in coordination of care (as documented) at patient's floor/unit and/or counseling patient: Coding Level of Care Code 36255 Subseq Hosp Care Lvl 2 Diagnoses SBO (small bowel obstruction) K56.609 Crohns disease K50.90
--- NOTE | 2021-12-20 15:57 | Surgery Progress Note ---
Date of Service December 20, 2021 Assessment & Plan (1) SBO (small bowel obstruction): Plan: pt is a 51 year-old male who was admitted to hospital for SBO with crohn's disease, IMP: SBO, Plan, continue conservative treatment, npo , IV fluid, will F/U, repeat KUB in [place], Admission and Anticipated Discharge Date Admission Date: December 19, 2021 Supervising Physician Co-Signing Physician Notes I personally evaluated the patient and agree with the findings as documented by Carlos Alberto Villanueva, PAC Exam: Constitutional: WD/WN, vitals as above General: EOM intact bilaterally Neck: normal visual inspection Respiratory: normal respiratory effort, lungs clear to auscultation Cardiovascular: RRR, no murmur, no edema Gastrointestinal: abdomennormal to inspection, nondistended, soft, nontender, no hepatosplenomegaly Musculoskeletal: no cyanosis, head normal to inspection Skin: no rashes, warm and dry Neurologic: moves all extremities Psychiatric: A and O x3, euthymic affect Subjective Seen at bedside. Accidentally pulled out NGT, is hoping this will not need to be replaced. Did have resolution of pain following NGT placement. Reports he has not had any flatus. Did have a very small bowel movement, but has not had gas around this and no bowel movement since. Abdomen continues to be slightly distended, but pain is improved compared to prior. No fever, chills, sweats, lightheadedness, dizziness, nausea, vomiting this morning. 12/20/2021 3: 55PM, Dr. Turner, F/U SBO, stable, passed some gas, no BM yet, no abdominal pain, no nausea, no vomiting, Physical Exam Constitutional: WD/WN, vitals as above Eyes: PERRL, conjunctivae normal, anicteric sclerae Neck: trachea midline, no thyromegaly Respiratory: normal respiratory effort, lungs clear to auscultation Cardiovascular: RRR, no murmur, no edema Gastrointestinal (Abdomen): soft, NT, ND, BS +, middle line scar, Neurologic: patellar DTR's 2+ bilat, sensation intact Psychiatric: A+Ox3, euthymic affect Results & Data ([facility]) Vital Signs (Past 12 Hours) Vital Signs Temp Pulse Resp BP Pulse Ox O2 Del Method 12/20/21 15:30 36.7 C 65 14 128/75 99 Room Air 12/20/21 07:56 36.5 C 69 16 123/79 95 Laboratory Results Abnormal lab results 12/20/21 12/20/21 Range/Units 06:56 06:56 RBC 4.07 L (4.63-6.08) M/uL Hgb 12.8 L (14.0-18.0) g/dl Hct 38.6 L (40.1-51.0) % Lymph # (Auto) 0.70 L (1.2-3.4) K/uL BUN/Creatinine Ratio 8.9 L (10-20) Glucose 102 H (70-99(Fasting)) mg/dl Calcium 8.1 L (8.5-10.1) mg/dl Diagnostic Findings ABDOMEN AND PELVIS CT WITH IV CONTRAST CT DOSE: 321.68 mGy.cm HISTORY: Acute mid abdominal pain in a patient with history of Crohn's disease Abdominal pain, history of Crohn's disease TECHNIQUE: Multiaxial CT images of the abdomen and pelvis were performed following the IV administration of 94 cc of Optiray, A dose lowering technique was utilized adhering to the principles of ALARA. COMPARISON STUDY: CT abdomen and pelvis 08/28/2020 FINDINGS: Clear lung bases. Mild right hemidiaphragmatic elevation. There is no pneumatosis or pneumoperitoneum. Unremarkable spleen, pancreas and adrenal glands. Gallbladder wall thickening without gallbladder distention. Unremarkable liver. Patency of the hepatic and portal veins. Kidneys. No hydronephrosis. Prostamegaly. Mild urinary bladder wall thickening with partial distention. Unremarkable abdominal aorta and IVC. No lymphadenopathy. Mild nonspecific distal esophageal wall thickening. Colonic diverticulum. High- grade small bowel obstruction with transition point involving a loop of small bowel within the central lower abdomen on image 277. There is wall thickening of the involved small bowel loop of a probable stricture or adhesion. Upstream air, fluid and stool-filled loops of jejunum. Postoperative changes consistent with prior right hemicolectomy with ileocolic anastomosis. There is wall thickening with increased enhancement of the terminal ileum on image 214 with additional loops of small bowel wall thickening in the ileum. Additional mild wall thickening is noted within the tortuous sigmoid colon within the abdominal right lower quadrant with wall thickening and partial distention involving the transverse and descending colon. Unremarkable soft tissues. No acute fracture. IMPRESSION: 1. High-grade small bowel obstruction with transition point within the central lower abdomen. The point of obstruction is likely secondary to a small bowel adhesion versus stricture related to the patient's inflammatory bowel disease. Surgical consultation is needed. 2. Postoperative changes of partial right hemicolectomy with ileocolic anastomosis. 3. Wall thickening of the terminal ileum without significant inflammatory stranding is likely related to chronic inflammatory bowel disease. Additional wall thickening within portions of the large bowel may be secondary to partial distention versus additional sites of disease.
[2021-12-20] MEDS: ENOXAPARIN INJ 40 MG/0.4 ML SYR SQ SCH (17:02)
[2021-12-21] MEDS: LACTATED RINGER'S 1,000 ML IV SCH ×2 (00:53→08:10)
[2021-12-21] MEDS: methylPREDNISolone 20 MG in SYRINGE 0 ML IV SCH ×2 (05:55→20:14)
[2021-12-21 08:34] LABS: Hemoglobin 12.8 g/dl (14.0-18.0); Immature Granulocytes # (auto) 0.02 K/uL (0.00-0.02); Immature Granulocytes % (auto) 0.3 %; Lymphocytes % (auto) 8.1 %; Mean Corpuscular Hemoglobin 31.1 pg (25.0-34.0); Mean Corpuscular Hgb Conc 33.7 g/dL (32.0-36.0); Mean Corpuscular Volume 92.5 fL (80.0-100.0); Mean Platelet Volume 10.2 fL (9.4-12.4); Monocytes # (auto) 0.13 K/uL (0.24-0.82); Monocytes % (auto) 1.8 %; Neutrophils # (auto) 6.65 K/uL (1.4-6.5); Neutrophils % (auto) 89.8 %; Platelet Count 248 K/uL (130-400); RDW Coefficient of Variation 12.2 % (11.5-14.5); Red Blood Count 4.11 M/uL (4.63-6.08)
[2021-12-21 09:03] LABS: BUN Creatinine Ratio 14.9 (10-20); Calcium 8.6 mg/dl (8.5-10.1); Est GFR (African American) 109.9 ml/min; Est GFR (Non-African American) 94.8 ml/min; Potassium 4.2 mmol/L (3.5-5.1)
--- NOTE | 2021-12-21 13:30 | Hospitalist Progress Note ---
Date of Service December 21, 2021 Assessment & Plan (1) SBO (small bowel obstruction): Plan: SBO 2/[address] A/P:1. High-grade small bowel obstruction with transition point within the central lower abdomen. The point of obstruction is likely secondary to a small bowel adhesion versus stricture related to the patient's inflammatory bowel disease. Surgical consultation is needed. 2. Postoperative changes of partial right hemicolectomy with ileocolic anastomosis.3. Wall thickening of the terminal ileum without significant inflammatory stranding is likely related to chronic inflammatory bowel disease. Additional wall thickening within portions of the large bowel may be secondary to partial distention versus additional sites of disease. Neurosurgery consulted improved with NGT, which wasaccidentally removed by pt when moving, but subsequently doing well and did not require replacement Pain control with morphine scaled morphine analgesia every 4 hours Zofran 4 mg every 4 hours as needed On admission no leukocytosis, hemoglobin normal, sodium/potassium normal, creatinine 1.18 (normal baseline around 11 0.2), no transaminitis, and COVID is negative Electrolytes remain stable Diet advanced to clears for lunch, advance to full's if doing well with no worsening of pain. If nausea/vomiting/worsening pain, downgrade or hold. If tolerating well advance to full and potential discharge in the morning Crohn's In remission previously per patient No maintenance medication since 2016 Has had stricturoplasty and several bowel resections (4 surgeries total per pt) Previously followed with Dr. Keen. Reports he talked about maintenance medications before he retired, and did not feel maintenance meds were required as he was doing well and had been on many drugs previously. Recommended low fiber diet and deferred medications otherwise. GI consulted to reestablish follow-up and reassess for maintenance medications. Seen by GI, recommended IV Solu-Medrol 20 mg every 8 hours with taper and eventual discharge to prednisone 40 mg with 5 mg/week taper after discharge. Follow-up colonoscopy as outpatient. Appreciate recommendations Solu-Medrol decreased to 20 mg twice daily 12/21 DVT prophylaxis: Lovenox Diet: N.p.o. CODE STATUS: Full code, surrogate decision maker would be Dispo: Medical/surgical (2) Crohns disease: Admission and Anticipated Discharge Date Admission Date: December 19, 2021 Subjective Patient doing well. Has had some flatus and a small bowel movement which returned this morning. Still with some abdominal distention, but improved from yesterday. Would like to trial diet advancement, reasonable. Denies other pain. Denies chest pain, chest pressure, lightheadedness, fever, chills, emesis, nausea, shortness of breath at bedside Review of Systems Review of Systems: All systems reviewed & are unremarkable except as noted in Subjective Physical Exam Physical Exam: General: A&Ox3. NAD. Cooperative. HEENT: Atraumatic, normocephalic. vision/Hearing grossly intact Pulm: CTAB A&P. -wheezes, -rales, -rhonchi. Symmetrical chest rise. No increased work of breathing. No respiratory distress. Cardiac: RRR, -mrg. Radial pulses intact and symmetrical. Abdominal: Mild tenderness at central/left upper abdomen improved from prior. Diminished bowel sounds. No guarding no rebound Ext: Warm, dry. Ore Fielder strength, hip flexion, ankle dorsi/plantarflexion intact. no edema. Results & Data Results & Data ([facility]) Vital Signs (Past 12 Hours) Vital Signs Temp Pulse Resp BP Pulse Ox O2 Del Method 12/21/21 05:58 36.6 C 77 16 119/69 97 Room Air PG Care Time/CCT Total # of Minutes Spent Total Time Spent with Patient: Total time spent is greater than 50% in coordination of care (as documented) at patient's floor/unit and/or counseling patient: Coding Level of Care Code 83137 Subseq Hosp Care Lvl 2 Diagnoses SBO (small bowel obstruction) K56.609 Crohns disease K50.90
--- NOTE | 2021-12-21 13:47 | Surgery Progress Note ---
Date of Service December 21, 2021 Assessment & Plan (1) SBO (small bowel obstruction): Plan: pt is a 51 year-old male who was admitted to hospital for SBO with crohn's disease, IMP: SBO, Plan, continue conservative treatment, npo , IV fluid, will F/U, repeat [facility] in [place], 12/21/2021 1:45Pm, F/U SBO, passed BM, clear diet, possible Discharge tomorrow, F/U his GI doctor Admission and Anticipated Discharge Date Admission Date: December 19, 2021 Supervising Physician Co-Signing Physician Notes I personally evaluated the patient and agree with the findings as documented by Carlos Alberto Villanueva, PAC Exam: Constitutional: WD/WN, vitals as above General: EOM intact bilaterally Neck: normal visual inspection Respiratory: normal respiratory effort, lungs clear to auscultation Cardiovascular: RRR, no murmur, no edema Gastrointestinal: abdomennormal to inspection, nondistended, soft, nontender, no hepatosplenomegaly Musculoskeletal: no cyanosis, head normal to inspection Skin: no rashes, warm and dry Neurologic: moves all extremities Psychiatric: A and O x3, euthymic affect Subjective Patient doing well. Has had some flatus and a small bowel movement which returned this morning. Still with some abdominal distention, but improved from yesterday. Would like to trial diet advancement, reasonable. Denies other pain. Denies chest pain, chest pressure, lightheadedness, fever, chills, emesis, nausea, shortness of breath at bedside 12/21/2021 1:44PM, Dr. Turner pt passed gas and BM, no abdominal pain, no fever, Physical Exam Constitutional: WD/WN, vitals as above Eyes: PERRL, conjunctivae normal, anicteric sclerae Neck: trachea midline, no thyromegaly Respiratory: normal respiratory effort, lungs clear to auscultation Cardiovascular: RRR, no murmur, no edema Gastrointestinal (Abdomen): soft, NT, ND, BS + Neurologic: patellar DTR's 2+ bilat, sensation intact Psychiatric: A+Ox3, euthymic affect Results & Data ([facility]) Vital Signs (Past 12 Hours) Vital Signs Temp Pulse Resp BP Pulse Ox O2 Del Method 12/21/21 05:58 36.6 C 77 16 119/69 97 Room Air
[2021-12-21] MEDS: ENOXAPARIN INJ 40 MG/0.4 ML SYR SQ SCH (17:05)
[2021-12-22] MEDS: methylPREDNISolone 20 MG in SYRINGE 0 ML IV SCH (07:44)
[2021-12-22 08:02] LABS: Basophils # (auto) 0.01 K/uL (0-0.2); Basophils % (auto) 0.1 %; Hematocrit (blood only) 40.3 % (40.1-51.0); Hemoglobin 13.4 g/dl (14.0-18.0); Immature Granulocytes # (auto) 0.02 K/uL (0.00-0.02); Immature Granulocytes % (auto) 0.2 %; Lymphocytes # (auto) 1.07 K/uL (1.2-3.4); Mean Corpuscular Hgb Conc 33.3 g/dL (32.0-36.0); Mean Corpuscular Volume 93.3 fL (80.0-100.0); Mean Platelet Volume 10.2 fL (9.4-12.4); Monocytes # (auto) 0.56 K/uL (0.24-0.82); Monocytes % (auto) 5.8 %; Neutrophils # (auto) 8.04 K/uL (1.4-6.5); Neutrophils % (auto) 82.9 %; Platelet Count 256 K/uL (130-400); RDW Coefficient of Variation 12.4 % (11.5-14.5); RDW Standard Deviation 42.6 fL (36.4-46.3); Red Blood Count 4.32 M/uL (4.63-6.08)
[2021-12-22 08:35] LABS: BUN Creatinine Ratio 14.9 (10-20); Calcium 8.9 mg/dl (8.5-10.1); Creatinine Clr Calc Pharmacy 85.6 ml/min; Est GFR (African American) 100.8 ml/min; Est GFR (Non-African American) 86.9 ml/min; Potassium 3.9 mmol/L (3.5-5.1)
--- NOTE | 2021-12-22 19:46 | Discharge Summary ---
Date of Service December 22, 2021 Admission HPI Per Admitting Provider James is a 51-year-old male with a past medical history of Crohn's disease not on daily treatment with a history of multiple prior abdominal surgery who came in with 1 day of abdominal pain and 1 episode of nonbloody nonbilious emesis. CT shows high-grade SBO likely due to adhesions. Case was discussed with surgery by ER provider, was recommended that patient be admitted to medical service, n.p.o., NGT, and follow clinically at this time. Karina to get water early this AM, epigastric sharp/twinge like pain similar to prior flares. Did move his bowels this morning, small, nonbloody/no melena. [place] poor, layed in bed. Had progressive nausea through the morning up to 10am with one episode of nonbloody/nonbilious emesis. From past hx knew it could be a blockage or adhesions so came to the ER. No fever, chills, or sweats but was cold today. No chest pain, chest pressure, or shortness of breath. 2-3/10 now after pain medications. Sx for crohns last at [facility] w/ Dr. Aguilar ~6 years ago, prior were at [facility] with Dr. Diane Gallego. Medical History: Reviewed Medications: Reviewed Surgical History: Reviewed Allergies: Reviewed Social History: Code Status: Full Code. Surrogate DM woyoselin fuentes he Principal Diagnosis Small bowel obstruction secondary to Crohn's disease resolving Discharge Exam The patient appeared stable Vital signs as documented. Lungs are clear to auscultation and appear unlabored Cardiac exam, Rhythm is regular.. No murmurs, rubs or gallops. Abdominal exam reveals normal bowel sounds, soft non tender, no masses Extremities are nonedematous and both pedal pulses are normal. Neurologic exam is alert and oriented, no focal loss of strength or sensation Skin is without bruises or rashes Psychologically is without concerns for anxiety or depression. Discharge Data Allergies Allergy/AdvReac Type Severity Reaction Status Date / Time No Known Allergies Allergy Verified 12/19/21 16:03 Consultations 12/19/21 15:08 ED Decision to Admit Stat 12/19/21 18:14 Consult General Surgery Routine 12/20/21 09:00 Consult Gastroenterology Routine Ordered Studies 12/19/21 13:32 CT Abd and Pelvis [CT abd pelvis IV con only] Stat Hospital Course (1) SBO (small bowel obstruction): SBO 2/[address] A/P:1. High-grade small bowel obstruction with transition point within the central lower abdomen. The point of obstruction is likely secondary to a small bowel adhesion versus stricture related to the patient's inflammatory bowel disease. Surgical consultation is needed. 2. Postoperative changes of partial right hemicolectomy with ileocolic anastomosis.3. Wall thickening of the termin al ileum without significant inflammatory stranding is likely related to chronic inflammatory bowel disease. Additional wall thickening within portions of the large bowel may be secondary to partial distention versus additional sites of disease. Patient tolerated advancing diet will be sent home on a prednisone taper oral oxycodone and Zofran. Patient was given instructions on the dangers of home opiate use and addiction Crohn's In remission previously per patient No maintenance medication since 2016 Has had stricturoplasty and several bowel resections (4 surgeries total per pt) Previously followed with Dr. Keen. Reports he talked about maintenance medications before he retired, and did not feel maintenance meds were required as he was doing well and had been on many drugs previously. Recommended low fiber diet and deferred medications otherwise. GI consulted to reestablish follow-up and reassess for maintenance medications. We will follow-up with outpatient gastroenterology at [facility]. CODE STATUS: Full code, surrogate decision maker would be (2) Crohns disease: Total Time Total Time Spent Total Time Spent (In Minutes): It required greater than 30 minutes to prepare this patient for discharge Discharge Plan Discharge Items Patient Disposition: Home - Self-Care Reason For Visit: SBO Discharge Diagnosis: small bowel obstruction crohns disease Activity: Resume your previous activity Non-emergency contact: Lawyer Probate Call non-emergency contact if: you have any medication questions, your symptoms worsen and you have a fever Follow-up/Referrals: Taylor Camargo CRNP [Nurse Practitioner] - 01/19/22 2:00 pm Jeannie Hackett CRNP [Primary Care Provider] - Diet: Low Fiber Addtl Attending Provider Instructions: please eat a low fiber diet / liquid diet and slowly advance to your normal diet' taper the prednisione as written unless told otherwise by follow up physician take pain medicines carefully Pending Studies at Discharge: No Stand-Alone Forms: [facility], Opioid Pain Management, Smoking Cessation Medications and DC Order Prescriptions: New prednisone 10 mg tablet 10 mg PO UD Qty: 40 0RF Rx Instructions: 4 pills a day x 4 d then 3 pills a day x 4 d then 2 pills a day x 4 d then one pill a day ondansetron HCl 4 mg tablet 4 mg PO Q8H PRN (Reason: nausea and vomiting) Qty: 20 0RF oxycodone 5 mg tablet 5 - 10 mg PO Q8H PRN (Reason: pain, moderate) Qty: 20 0RF Continued ashwagandha root extract 300 mg Capsule 0 mg PO DAILY Rx Instructions: PT UNSURE OF STRENGTH multivitamin Tablet 1 tab PO DAILY Dwayne Back and Body 500-32.5 mg Tablet 1 tab PO DIRECTED PRN (Reason: SINGH, PAIN, ACHES) Discharge Orders: Discharge Order (Routine); Ordered 12/22/21 Ordered By: Matthew Panda/Other Patient Handouts: Low-Fiber Diet Admission Data Admit Date/Time: 12/19/21 16:22 Attending Provider: Matthew Hassan Admit Provider: Brijesh Palafox Primary Care Provider: Jeannie Hackett Other Providers: Brijesh Palafox ; Gino Gibbons ; Burton Hanks Other Interventions: Discharge Summary Assessment (RN) Last Done: 12/22/21 17:12 Coding Level of Care Code D/C DAY MANAGEMENT >30 MINS Diagnoses SBO (small bowel obstruction) K56.609 Crohns disease K50.90
== END 2021-12-22 17:45 | disposition home or self-care (01) | DRG 387 ==
LOC: ED 12:22 → EDINP 16:22 → SUATTDRO 16:22 → 3N 18:00
DX: K50.912 Crohn's disease, unspecified, with intestinal obstruction; Z79.82 Long term (current) use of aspirin; Z87.891 Personal history of nicotine dependence